=== PATIENT | female | born 1945 | race Caucasian/White ===

== ENCOUNTER 2017-09-26 19:35 | Inpatient (IN) ==
[2017-09-26] MEDS ORDERED: Ipratropium/Albuterol Neb 3 ML IH ONE (19:48)
[2017-09-26] MEDS ORDERED: methylPREDNISolone 125 MG/2 ML VIAL IVP ONE (19:48)
[2017-09-26 19:54] LABS: Bilirubin,Urine Negative (Negative); Blood,Urine Negative (Negative); Clarity,Urine Clear (Clear); Color,Urine Yellow (Yellow); Glucose,Urine (UA) Normal (Normal); Ketones,Urine 15 mg/dL (Negative); Leukocyte Esterase,Urine Negative (Negative); Nitrite,Urine Negative (Negative); Protein,Urine Negative (Neg-Trace); Specific Gravity,Urine > 1.030 (1.010-1.025); Urobilinogen,Urine Normal (Normal)
--- NOTE | 2017-09-26 20:10 | Emergency Department Note ---
Disposition Clinical Impression: Acute exacerbation of chronic obstructive airways disease, Hypoxia, Elevated brain natriuretic peptide (BNP) level Disposition: Admitted As Inpatient Condition: Fair Referrals: Jarett Romero MD [Primary Care Provider] - Time of Disposition: 22:26 SOB HPI - General Chief Complaint: ED Shortness of Breath/Dyspnea Stated Complaint: sob copd Time Seen by Provider: 09/26/17 19:42 Source: patient, EMS Limitations: no limitations Nursing Notes Reviewed: Yes Vital Signs Reviewed: Yes - History of Present Illness Patient presents to the ED the chief complaint of shortness of breath. Was transferred from urgent care. Patient states she has been short of breath the last few days, gradually worsening. Subjective fevers at home. Has had productive yellow to green cough. Some chest tightness but no chest pain. Denies any abdominal pain, vomiting or diarrhea. Got a dose of Rocephin in urgent care, but no imaging or labs. States she just feels very rundown and tired. - Related Data Home Medications Medication Instructions Recorded Confirmed Albuterol Neb [Proventil Neb] 2.5 mg IH Q4H PRN 03/30/16 09/26/17 Albuterol Sulfate [Proair Hfa] 2 puff IH Q4H PRN 03/30/16 09/26/17 Atenolol [Tenormin] 50 mg PO DAILY 03/30/16 09/26/17 Budesonide/Formoterol 160/4.5 1 puff IH BIDR 03/30/16 09/26/17 [Symbicort 160/4.5] Cyclosporine [Restasis] 1 drop BOTH EYES BID 03/30/16 09/26/17 Fluticasone Propionate Nasal 1 spray NS BID 03/30/16 09/26/17 [Flonase] Gabapentin [Neurontin] 600 mg PO HS 03/30/16 09/26/17 Levothyroxine [Synthroid] 88 mcg PO 0630 03/30/16 09/26/17 Montelukast [Singulair] 10 mg PO DAILY 03/30/16 09/26/17 Naproxen [Naprosyn] 500 mg PO BID PRN 03/30/16 09/26/17 Pantoprazole Sodium [Protonix] 40 mg PO BID 03/30/16 09/26/17 Tizanidine HCl 4 mg PO HS PRN 03/30/16 09/26/17 hydroCHLOROthiazide 25 mg PO DAILY 03/30/16 09/26/17 [Hydrochlorothiazide] ALPRAZolam [Xanax 0.5 MG Tablet] 0.5 mg PO BID 09/26/17 09/26/17 Ipratropium/Albuterol Sulfate 2 puff IH BID 09/26/17 09/26/17 [Combivent Respimat Inhal [place]] Meclizine HCl [Verticalm] 25 mg PO TID PRN 09/26/17 09/26/17 Allergies Allergy/AdvReac Type Severity Reaction Status Date / Time No Known Allergies Allergy Verified 03/30/16 11:38 Review of Systems: As reviewed in the HPI. All other systems reviewed are negative or normal. Past Medical History - Past Medical History Attestation: Yes The following information was validated with the patient. Source: patient, old records reviewed, obtained from family Medical history: Reports: arthritis, asthma, COPD, GERD, hypertension, osteoporosis, thyroid disease Surgical history: Reports: thyroidectomy Psychiatric history: Reports: anxiety - Social History Smoking Status: Current every day smoker Smokeless Tobacco Status: No Alcohol use: Reports: occasionally Drug use: Reports: none Physical Exam - General Limitations: no limitations General appearance: alert, in distress - Head Head exam: atraumatic, normocephalic, normal inspection - ENT ENT exam: mucous membranes moist - Respiratory Respiratory exam: Present: respiratory distress, wheezes, accessory muscle use, prolonged expiratory phase. Absent: normal lung sounds bilaterally, stridor - Cardiovascular Cardiovascular exam: Present: tachycardia, normal heart sounds - Abdominal Exam Abdominal exam: Present: soft, Non-Tender. Absent: tenderness, distention, guarding, rebound, rigidity - Extremities Exam Extremities exam: Present: normal inspection, full ROM. Absent: tenderness, pedal edema - Neurological Exam Neurological exam: Present: alert, oriented X3 - Psychiatric Psychiatric exam: Present: normal affect, normal mood - Skin Skin exam: Present: intact, normal color, diaphoresis Course Course Narrative: Patient presenting with shortness breath. Patient is very tachypnic And diaphoretic. EKG shows rate related ST depression. She is wheezing throughout moderate respiratory distress. We will give her 3 duo nebs and steroids and reevaluate. - Reevaluation(s) Reevaluation #1: Patient's wheezing has improved after the duo nebs. However, she still has poor inspiratory effort and looks like she is starting to tire out. Patient does have accessory muscle use abdominal muscle use and states that she is starting to feel tired. We will place on BiPAP at this time Reevaluation #2: After 10 minutes on BiPAP. Patient has improved greatly, much better aeration, states that she feels much better and appears more awake and alert. We will admit for COPD exacerbation. Her BNP is elevated. However, she had an echo 4 days ago with an EF of 60%. Do not feel that she is in acute ingestive heart failure due to lack of pulmonary edema or peripheral edema. Vital Signs Temperature 100.3 F H 09/26/17 19:50 Pulse Rate 117 09/26/17 19:50 Respiratory Rate 25 09/26/17 19:50 Blood Pressure 150/101 09/26/17 19:50 O2 Sat by Pulse Oximetry 97 09/26/17 19:50 Temperature 100.3 F H 09/26/17 19:50 Pulse Rate 106 09/26/17 21:59 Respiratory Rate 20 09/26/17 22:23 Blood Pressure 114/68 09/26/17 22:23 O2 Sat by Pulse Oximetry 96 09/26/17 21:59 Oxygen Delivery Oxygen Delivery Bipap Shortness of Breath/Dyspnea - Differential Diagnosis Likely: acute exacerbation of chronic obstructive airways disease, congestive heart failure, pneumonia - Medical Records Medical records reviewed: Yes I reviewed the patient's medical records. - Lab Data Lab results reviewed: Yes I reviewed the patient's lab results. Result diagrams: 09/26/17 20:25 09/26/17 20:25 Lab Results 09/26/17 09/26/17 09/26/17 Range/Units 19:45 20:25 20:25 WBC 7.9 (4.3-11.1) K/mcL RBC 3.95 (3.82-4.97) M/mcL Hgb 12.9 (11.5-15.4) g/dL Hct 38.6 (35.3-44.9) % MCV 97.7 (83.0-100.0) fL MCH 32.7 (28.0-33.3) pg MCHC 33.4 (31.6-35.5) g/dL RDW 13.0 (11.5-14.5) % Plt Count 155 (140-400) K/mcL MPV 11.1 (9.4-12.4) fL Immature Gran % 0.4 (0-4) % Seg Neutrophils % 81.2 % Lymphocytes % 10.8 % Monocytes % 7.2 % Eosinophils % 0.0 % Basophils % 0.4 % Neutrophils # 6.5 (1.6-8.9) K/mcL Lymphocytes # 0.9 (0.6-4.6) K/mcL Monocytes # 0.6 (0.0-1.3) K/mcL Eosinophils # 0.0 (0.0-0.6) K/mcL Basophils # 0.0 (0.0-0.2) K/mcL VBG pH (7.32-7.42) pH Units VBG pCO2 (41-51) mmHg VBG pO2 (25-50) mmHg VBG HCO3 (21-27) mEq/L Sodium 136 (136-145) mEq/L Potassium 3.3 L (3.5-5.1) mEq/L Chloride 99 (98-107) mEq/L Carbon Dioxide 25 (23-29) mEq/L BUN 14 (8-23) mg/dL Creatinine 0.66 (0.60-1.20) mg/dL Est GFR ( Amer) > 60 (> 60) Est GFR (Non-Af Amer) > 60 (> 60) BUN/Creatinine Ratio 21 (6-26) Glucose 148 H (70-105) mg/dL Calculated Osmolality 285 (280-300) Lactic Acid (0.5-2.2) mmol/L Calcium 8.9 (8.6-10.3) mg/dL Troponin I 0.03 (< 0.04) ng/mL B-Natriuretic Peptide (Less than 100) pg/mL Urine Color Yellow (Yellow) Urine Clarity Clear (Clear) Urine pH 6.0 (5.0-8.0) pH Units Ur Specific [place] > 1.030 H (1.010-1.025) Urine Protein Negative (Neg-Trace) mg/dL Urine Glucose (UA) Normal (Normal) mg/dL Urine Ketones 15 H (Negative) mg/dL Urine Blood Negative (Negative) Urine Nitrite Negative (Negative) Urine Bilirubin Negative (Negative) Urine Urobilinogen Normal (Normal) mg/dL Ur Leukocyte Esterase Negative (Negative) Ur Culture Indicated? NO (NO) 09/26/17 09/26/17 09/26/17 Range/Units 20:25 20:25 20:58 WBC (4.3-11.1) K/mcL RBC (3.82-4.97) M/mcL Hgb (11.5-15.4) g/dL Hct (35.3-44.9) % MCV (83.0-100.0) fL MCH (28.0-33.3) pg MCHC (31.6-35.5) g/dL RDW (11.5-14.5) % Plt Count (140-400) K/mcL MPV (9.4-12.4) fL Immature Gran % (0-4) % Seg Neutrophils % % Lymphocytes % % Monocytes % % Eosinophils % % Basophils % % Neutrophils # (1.6-8.9) K/mcL Lymphocytes # (0.6-4.6) K/mcL Monocytes # (0.0-1.3) K/mcL Eosinophils # (0.0-0.6) K/mcL Basophils # (0.0-0.2) K/mcL VBG pH 7.38 (7.32-7.42) pH Units VBG pCO2 48 (41-51) mmHg VBG pO2 149 H (25-50) mmHg VBG HCO3 28 H (21-27) mEq/L Sodium (136-145) mEq/L Potassium (3.5-5.1) mEq/L Chloride (98-107) mEq/L Carbon Dioxide (23-29) mEq/L BUN (8-23) mg/dL Creatinine (0.60-1.20) mg/dL Est GFR ( Amer) (> 60) Est GFR (Non-Af Amer) (> 60) BUN/Creatinine Ratio (6-26) Glucose (70-105) mg/dL Calculated Osmolality (280-300) Lactic Acid 0.7 (0.5-2.2) mmol/L Calcium (8.6-10.3) mg/dL Troponin I (< 0.04) ng/mL B-Natriuretic Peptide 329 H (Less than 100) pg/mL Urine Color (Yellow) Urine Clarity (Clear) Urine pH (5.0-8.0) pH Units Ur Specific [place] (1.010-1.025) Urine Protein (Neg-Trace) mg/dL Urine Glucose (UA) (Normal) mg/dL Urine Ketones (Negative) mg/dL Urine Blood (Negative) Urine Nitrite (Negative) Urine Bilirubin (Negative) Urine Urobilinogen (Normal) mg/dL Ur Leukocyte Esterase (Negative) Ur Culture Indicated? (NO) - Radiology Data Radiology results reviewed: Yes I reviewed the patient's radiology results. - EKG Data EKG attestation: Yes I reviewed and interpreted this EKG. EKG results narrative: Sinus tachycardia, rate 110, QRS 91, QTc 490, right axis deviation, diffuse suspected rate related ST segment depression. Critical Care Time Critical Care Time: Yes Total Critical Care Time: 30 Attestation: I personally spent ___30___ minutes devoted to the care of this critically ill patient. This time excludes the time for billable procedures. Attestation Statement - Attestation Attestation: I examined this patient and my medical decision-making was reviewed with the Resident Physician. I agree with the documented findings, disposition and treatment plan as described except to the extent set forth below.
[2017-09-26 20:37] LABS: Basophils % 0.4 %; Hematocrit 38.6 % (35.3-44.9); Hemoglobin 12.9 g/dL (11.5-15.4); Immature Granulocytes % 0.4 % (0-4); Lymphocytes # 0.9 K/mcL (0.6-4.6); Lymphocytes % 10.8 %; Mean Corpuscular HGB Conc 33.4 g/dL (31.6-35.5); Mean Corpuscular Hemoglobin 32.7 pg (28.0-33.3); Mean Corpuscular Volume 97.7 fL (83.0-100.0); Mean Platelet Volume 11.1 fL (9.4-12.4); Monocytes # 0.6 K/mcL (0.0-1.3); Monocytes % 7.2 %; Neutrophils # 6.5 K/mcL (1.6-8.9); Platelet Count 155 K/mcL (140-400); Red Blood Count 3.95 M/mcL (3.82-4.97); Segmented Neutrophils % 81.2 %
[2017-09-26 20:52] LABS: Troponin I 0.03 ng/mL (< 0.04)
[2017-09-26 21:01] LABS: VBG HCO3 28 mEq/L (21-27); VBG PCO2 48 mmHg (41-51); VBG PH 7.38 pH Units (7.32-7.42); VBG PO2 149 mmHg (25-50)
[2017-09-26 21:17] LABS: BUN/Creatinine Ratio 21 (6-26); Blood Urea Nitrogen 14 mg/dL (8-23); Calcium 8.9 mg/dL (8.6-10.3); Carbon Dioxide 25 mEq/L (23-29); Chloride 99 mEq/L (98-107); Glucose 148 mg/dL (70-105); Osmolality,Calculated 285 (280-300); Potassium 3.3 mEq/L (3.5-5.1); Sodium 136 mEq/L (136-145); eGFR For African Americans > 60 (> 60); eGFR For Non-African Americans > 60 (> 60)
--- NOTE | 2017-09-26 23:01 | Emergency Department Note ---
Disposition Clinical Impression: Acute exacerbation of chronic obstructive airways disease, Hypoxia, Elevated brain natriuretic peptide (BNP) level Disposition: Admitted As Inpatient Condition: Fair Referrals: Jarett Romero MD [Primary Care Provider] - General Adult HPI - General Chief complaint: ED Shortness of Breath/Dyspnea Stated complaint: sob copd Time Seen by Provider: 09/26/17 19:42 Source: patient, EMS Limitations: no limitations - History of Present Illness Pain Scale: 0 - Related Data Home Medications Medication Instructions Recorded Confirmed Albuterol Neb [Proventil Neb] 2.5 mg IH Q4H PRN 03/30/16 09/26/17 Albuterol Sulfate [Proair Hfa] 2 puff IH Q4H PRN 03/30/16 09/26/17 Atenolol [Tenormin] 50 mg PO DAILY 03/30/16 09/26/17 Budesonide/Formoterol 160/4.5 1 puff IH BIDR 03/30/16 09/26/17 [Symbicort 160/4.5] Cyclosporine [Restasis] 1 drop BOTH EYES BID 03/30/16 09/26/17 Fluticasone Propionate Nasal 1 spray NS BID 03/30/16 09/26/17 [Flonase] Gabapentin [Neurontin] 600 mg PO HS 03/30/16 09/26/17 Levothyroxine [Synthroid] 88 mcg PO 0630 03/30/16 09/26/17 Montelukast [Singulair] 10 mg PO DAILY 03/30/16 09/26/17 Naproxen [Naprosyn] 500 mg PO BID PRN 03/30/16 09/26/17 Pantoprazole Sodium [Protonix] 40 mg PO BID 03/30/16 09/26/17 Tizanidine HCl 4 mg PO HS PRN 03/30/16 09/26/17 hydroCHLOROthiazide 25 mg PO DAILY 03/30/16 09/26/17 [Hydrochlorothiazide] ALPRAZolam [Xanax 0.5 MG Tablet] 0.5 mg PO BID 09/26/17 09/26/17 Ipratropium/Albuterol Sulfate 2 puff IH BID 09/26/17 09/26/17 [Combivent Respimat Inhal [place]] Meclizine HCl [Verticalm] 25 mg PO TID PRN 09/26/17 09/26/17 Allergies Allergy/AdvReac Type Severity Reaction Status Date / Time No Known Allergies Allergy Verified 03/30/16 11:38 Past Medical History - Past Medical History Medical history: Reports: arthritis, asthma, COPD, GERD, hypertension, osteoporosis, thyroid disease Surgical history: Reports: thyroidectomy Psychiatric history: Reports: anxiety - Social History Smoking Status: Current every day smoker Smokeless Tobacco Status: No Alcohol use: Reports: occasionally Drug use: Reports: none Physical Exam - General Limitations: no limitations General appearance: alert, in distress Course Vital Signs Temperature 100.3 F H 09/26/17 19:50 Pulse Rate 117 09/26/17 19:50 Respiratory Rate 25 09/26/17 19:50 Blood Pressure 150/101 09/26/17 19:50 O2 Sat by Pulse Oximetry 97 09/26/17 19:50 Temperature 100.3 F H 09/26/17 19:50 Pulse Rate 106 09/26/17 21:59 Respiratory Rate 20 09/26/17 22:23 Blood Pressure 114/68 09/26/17 22:23 O2 Sat by Pulse Oximetry 96 09/26/17 21:59 Oxygen Delivery Oxygen Delivery Bipap Medical Decision Making - Lab Data Result diagrams: 09/26/17 20:25 09/26/17 20:25 Lab Results 09/26/17 09/26/17 09/26/17 Range/Units 19:45 20:25 20:25 WBC 7.9 (4.3-11.1) K/mcL RBC 3.95 (3.82-4.97) M/mcL Hgb 12.9 (11.5-15.4) g/dL Hct 38.6 (35.3-44.9) % MCV 97.7 (83.0-100.0) fL MCH 32.7 (28.0-33.3) pg MCHC 33.4 (31.6-35.5) g/dL RDW 13.0 (11.5-14.5) % Plt Count 155 (140-400) K/mcL MPV 11.1 (9.4-12.4) fL Immature Gran % 0.4 (0-4) % Seg Neutrophils % 81.2 % Lymphocytes % 10.8 % Monocytes % 7.2 % Eosinophils % 0.0 % Basophils % 0.4 % Neutrophils # 6.5 (1.6-8.9) K/mcL Lymphocytes # 0.9 (0.6-4.6) K/mcL Monocytes # 0.6 (0.0-1.3) K/mcL Eosinophils # 0.0 (0.0-0.6) K/mcL Basophils # 0.0 (0.0-0.2) K/mcL VBG pH (7.32-7.42) pH Units VBG pCO2 (41-51) mmHg VBG pO2 (25-50) mmHg VBG HCO3 (21-27) mEq/L Sodium 136 (136-145) mEq/L Potassium 3.3 L (3.5-5.1) mEq/L Chloride 99 (98-107) mEq/L Carbon Dioxide 25 (23-29) mEq/L BUN 14 (8-23) mg/dL Creatinine 0.66 (0.60-1.20) mg/dL Est GFR ( Amer) > 60 (> 60) Est GFR (Non-Af Amer) > 60 (> 60) BUN/Creatinine Ratio 21 (6-26) Glucose 148 H (70-105) mg/dL Calculated Osmolality 285 (280-300) Lactic Acid (0.5-2.2) mmol/L Calcium 8.9 (8.6-10.3) mg/dL Troponin I 0.03 (< 0.04) ng/mL B-Natriuretic Peptide (Less than 100) pg/mL Urine Color Yellow (Yellow) Urine Clarity Clear (Clear) Urine pH 6.0 (5.0-8.0) pH Units Ur Specific [place] > 1.030 H (1.010-1.025) Urine Protein Negative (Neg-Trace) mg/dL Urine Glucose (UA) Normal (Normal) mg/dL Urine Ketones 15 H (Negative) mg/dL Urine Blood Negative (Negative) Urine Nitrite Negative (Negative) Urine Bilirubin Negative (Negative) Urine Urobilinogen Normal (Normal) mg/dL Ur Leukocyte Esterase Negative (Negative) Ur Culture Indicated? NO (NO) 09/26/17 09/26/17 09/26/17 Range/Units 20:25 20:25 20:58 WBC (4.3-11.1) K/mcL RBC (3.82-4.97) M/mcL Hgb (11.5-15.4) g/dL Hct (35.3-44.9) % MCV (83.0-100.0) fL MCH (28.0-33.3) pg MCHC (31.6-35.5) g/dL RDW (11.5-14.5) % Plt Count (140-400) K/mcL MPV (9.4-12.4) fL Immature Gran % (0-4) % Seg Neutrophils % % Lymphocytes % % Monocytes % % Eosinophils % % Basophils % % Neutrophils # (1.6-8.9) K/mcL Lymphocytes # (0.6-4.6) K/mcL Monocytes # (0.0-1.3) K/mcL Eosinophils # (0.0-0.6) K/mcL Basophils # (0.0-0.2) K/mcL VBG pH 7.38 (7.32-7.42) pH Units VBG pCO2 48 (41-51) mmHg VBG pO2 149 H (25-50) mmHg VBG HCO3 28 H (21-27) mEq/L Sodium (136-145) mEq/L Potassium (3.5-5.1) mEq/L Chloride (98-107) mEq/L Carbon Dioxide (23-29) mEq/L BUN (8-23) mg/dL Creatinine (0.60-1.20) mg/dL Est GFR ( Amer) (> 60) Est GFR (Non-Af Amer) (> 60) BUN/Creatinine Ratio (6-26) Glucose (70-105) mg/dL Calculated Osmolality (280-300) Lactic Acid 0.7 (0.5-2.2) mmol/L Calcium (8.6-10.3) mg/dL Troponin I (< 0.04) ng/mL B-Natriuretic Peptide 329 H (Less than 100) pg/mL Urine Color (Yellow) Urine Clarity (Clear) Urine pH (5.0-8.0) pH Units Ur Specific [place] (1.010-1.025) Urine Protein (Neg-Trace) mg/dL Urine Glucose (UA) (Normal) mg/dL Urine Ketones (Negative) mg/dL Urine Blood (Negative) Urine Nitrite (Negative) Urine Bilirubin (Negative) Urine Urobilinogen (Normal) mg/dL Ur Leukocyte Esterase (Negative) Ur Culture Indicated? (NO) Attestation Statement - Attestation Attestation: I examined this patient and my medical decision-making was reviewed with the Resident Physician. I agree with the documented findings, disposition and treatment plan as described except to the extent set forth below. 72-year-old female was a CT reveals differently. She says symptoms evolving for the past 2 days associated with productive cough and low-grade fever. She went to urgent care at which time they gave her injections of Solu-Medrol and Rocephin and sent her here for further treatment. She presents with moderate respiratory distress. She is on home oxygen. She also continues smoking. Elderly female who is in moderate physiologic, respiratory distress upon arrival. She is tachypneic and tachycardic. He is membranes are dry. Neck supple. Trachea midline. Chest with diminished breath sounds throughout and biphasic wheezes in all lung resendez. No focal rhonchi appreciated. Abdomen soft, nondistended and nontender. Extremities warm and dry without asymmetric edema. She was given sequential DuoNeb treatments with some improvement but was still tachypneic with moderate use of accessory muscles. VBG was unremarkable. She is placed on BiPAP with significant symptomatic relief. She continued on BiPAP and will be admitted to the hospital for further therapy and monitoring. The high probability of a clinically significant, sudden or life threatening deterioration of the [cardiopulmonary] system(s) required my full and direct attention, intervention and personal management. The aggregate critical care time was [32] minutes. This time is in addition to time spent performing reported procedures but includes the following: [x] Data Review and interpretation [x] Patient assessment and monitoring of vital signs [x] Documentation [x] Medication orders and management
--- NOTE | 2017-09-26 23:09 | Internal Med History&Physical ---
<Vicente Puckett - Last Filed: 09/26/17 23:47> Date of Encounter: 09/26/17 Time of Encounter: 23:08 Internal Medicine - H&P: HPI Chief complaint: SOB Admitted From: Emergency Dept Plans for Post Hospital Care: Home History of present illness: Ms. Funez is a 72 year old female with past medical history of COPD presents to emergency department from urgent care with a complaint of shortness of breath. She states that she has been experiencing shortness breath past 3 days and has been getting progressively worse. She does wear home oxygen at 2.5 L. She also uses home inhalers of Symbicort, albuterol nebulizers and has been using her albuterol more frequently. She does have a productive cough with foamy white sputum however this is consistent with her baseline. She also reports subjective fevers during this time. She denies any complaints of chest pain, numbness, tingling outside of her baseline radiculopathy. She does state she experiences nausea and 1 episode of vomiting which contained gastric contents. This has resolved. Denies any relieving factors and states that it is exacerbated with exertion but denies any orthopnea or PND. Denies any swelling. She does have a recent echocardiogram this past week which showed an ejection fraction of 60% and mild diastolic dysfunction. In the emergency department, patient did receive duo nebs and albuterol. Dictation she was saturating oxygen 97% on 2 L. EKG showed sinus tachycardia with a rate in the 130s. Chest x-ray showed no acute process. Labs were at baseline levels including no WBC elevation but did have an elevated BNP of 329 and hypokalemia at 3.3. Past Med Surg Social Fam HX - Past Medical History Medical history: arthritis, asthma, COPD, GERD, hypertension, osteoporosis, thyroid disease Psychiatric history: anxiety - Past Surgical History Surgical History: thyroidectomy - Social History Smoking Status: Current every day smoker Smokeless Tobacco Status: No Alcohol use: occasionally Drug use: none Internal Medicine - H&P: Meds Albuterol Neb [Proventil Neb] 2.5 mg IH Q4H PRN 03/30/16 [History] Albuterol Sulfate [Proair Hfa] 2 puff IH Q4H PRN 03/30/16 [History] Atenolol [Tenormin] 50 mg PO DAILY 03/30/16 [History] Budesonide/Formoterol 160/4.5 [Symbicort 160/4.5] 1 puff IH BIDR 03/30/16 [ History] Cyclosporine [Restasis] 1 drop BOTH EYES BID 03/30/16 [History] Fluticasone Propionate Nasal [Flonase] 1 spray NS BID 03/30/16 [History] Gabapentin [Neurontin] 600 mg PO HS 03/30/16 [History] Levothyroxine [Synthroid] 88 mcg PO 0630 03/30/16 [History] Montelukast [Singulair] 10 mg PO DAILY 03/30/16 [History] Naproxen [Naprosyn] 500 mg PO BID PRN 03/30/16 [History] Pantoprazole Sodium [Protonix] 40 mg PO BID 03/30/16 [History] Tizanidine HCl 4 mg PO HS PRN 03/30/16 [History] hydroCHLOROthiazide [Hydrochlorothiazide] 25 mg PO DAILY 03/30/16 [History] ALPRAZolam [Xanax 0.5 MG Tablet] 0.5 mg PO BID 09/26/17 [History] Ipratropium/Albuterol Sulfate [Combivent Respimat Inhal Bodfish] 2 puff IH BID [History] Meclizine HCl [Verticalm] 25 mg PO TID PRN 09/26/17 [History] 3 Allergy/AdvReac Type Severity Reaction Status Date / Time No Known Allergies Allergy Verified 03/30/16 11:38 All Systems PM: A 10-system review of systems was performed and is negative for pertinent findings except as documented above in the HPI. Review of systems: - Constitutional: Admits to subjective fevers Denies weight loss, generalized fatigue - EENT: Denies vision changes/blurriness, tinnitus, auditory changes, rhinorrhea , congestion, sore throat, odynaphagia - CVS: Denies chest pain, palpitations, orthopnea, edema, PND, - Pulm: Admits to shortness breath, cough, sputum Denies hematemesis, wheezing - GI: Admits to nausea, vomiting Denies abdominal pain, anorexia, diarrhea, constipation, melena - : Denies dysuria, increased frequency, urgency, hematuria, - Skin: Denies rashes, ulcers, color changes, - Neuro: Denies MARSHALL, paresthesias, focal deficits, ataxia, - Constitutional Vitals: Temp Pulse Resp BP Pulse Ox 100.3 F H 106 20 114/68 96 09/26/17 19:50 09/26/17 21:59 09/26/17 22:23 09/26/17 22:23 09/26/17 21:59 Exam: Gen.: Vitals noted. No acute distress. AAOx3. Resting comfortably in bed on 4 L of oxygen. Cachectic, thin-appearing female HEENT: PERRL/EOMI, oropharynx clear, Normocephalic, atraumatic, MMM Cardiac: Tachycardic, no murmur, +S1/S2 Pulmonary: Diffuse wheezing present bilaterally. equal chest expansion. Prominent SCMs. Abdomen: soft, nontender, BS noted, no guarding, no rebound. Extremities: no BLE edema, nontender calf, no cyanosis or clubbing Neuro: A&Ox3, moves all extremities, no focal deficits Psych: Appropriate mood and behavior Internal Med - H&P Results - Labs CBC & Chem 7: 09/26/17 20:25 09/26/17 20:25 - Assessment and plan (1) Acute and chronic respiratory failure Current Visit: Yes Status: Acute Assessment and plan: - Likely secondary to COPD exacerbation as below - Home oxygen requirement of 2.5L, currently tolerating 4 L of oxygen in mid 90s - Home medications of Symbicort, albuterol nebulizers. No reported hospitalizations for shortness of breath - Chest x-ray shows no acute process, VBG shows no hypercarbia - Vital signs stable on presentation including normal leukocyte count, patient reports subjective fevers - Productive cough at baseline Plan - Solu-medrol 40 q8 hours, duonebs, levalbuterol for tachycardia - Levaquin - Supplemental O2 as needed Qualifiers: Respiratory failure complication: hypoxia Qualified Code(s): J96.21 - Acute and chronic respiratory failure with hypoxia (2) Tachycardia Current Visit: Yes Status: Acute Assessment and plan: - Possibly secondary to to albuterol use versus hypoxia - EKG shows sinus rhythm - Patient is asymptomatic Plan - Switch albuterol to levalbuterol - Monitor at this time, patient does not appear septic however does meet SIRS criteria for tachycardia and tachypnea (3) Acute exacerbation of chronic obstructive airways disease Current Visit: Yes Status: Acute Assessment and plan: - As above for acute on chronic respiratory failure with hypoxia (4) Elevated glucose Current Visit: Yes Status: Acute Assessment and plan: - Blood glucose of 148 on admission, no reports of diabetes - No recent A1c in computer system - We will obtain A1c with morning labs - Expect a rise in blood glucose given steroids as above (5) Elevated brain natriuretic peptide (BNP) level Current Visit: Yes Status: Acute Assessment and plan: - BNP of 329 - Echocardiogram in 09/22/17 shows ejection fraction of 60% with mild diastolic dysfunction - Patient denies any symptoms of orthopnea or PND, no reports of swelling - Shortness breath is likely secondary to COPD exacerbation - We will monitor at this time and treat COPD as above (6) Tobacco abuse Current Visit: Yes Status: Acute Assessment and plan: - Patient reports smoking 1 pack per day - She was advised to quit however is not interested in cessation at this time (7) DVT prophylaxis Current Visit: Yes Status: Acute Assessment and plan: Subcutaneous heparin (8) Hypokalemia Current Visit: Yes Status: Acute Assessment and plan: - Potassium of 3.3 on admission - We will replenish with 40 mEq now , expect a decrease Given albuterol use emergency room - Monitor with daily labs - Time Spent With Patient Total time spent is greater than 50% in coordination of care (as documented) at patient's floor/unit and/or counseling patient: 25 - 35 minutes <Yasir Dupont - Last Filed: 09/27/17 01:01> Date of Encounter: 09/27/17 Time of Encounter: 23:40 Internal Medicine - H&P: HPI History of present illness: Ms. Funez is a 72 year old female Past Med Surg Social Fam HX - Additional Family History Additional family history: Family history reviewed and found to be noncontributory at this time. All Systems PM: A 10-system review of systems was performed and is negative for pertinent findings except as documented above in the HPI. - Constitutional Vitals: Temp Pulse Resp BP Pulse Ox 9738 F H 132 18 123/88 93 09/26/17 23:33 09/26/17 23:33 09/26/17 23:33 09/26/17 23:33 09/26/17 23:33 Internal Med - H&P Results - Labs CBC & Chem 7: 09/26/17 20:25 09/26/17 20:25 - Attending Attestation I examined this patient and my medical decision-making was reviewed with the Resident Physician, Vicente Puckett. I agree with the documented findings, disposition and treatment plan as described with any changes as documented below. 72-year-old female patient with history of COPD presented to the ER with acute shortness of breath, subjective fevers along with cough and sputum production. On examination here, she has end expiratory wheezes. At home, she is on 2-1/2 L O2 supplementation. No chest pain. No hemoptysis. Chest x-ray does not show any clear consolidation although there does appear to be some increased markings in right base. She was given bronchodilators and placed on BiPAP in ER. Acute on chronic respiratory failure with hypoxia: Admit inpatient. Treat with O2 supplementation and BiPAP as needed. Treat underlying COPD exacerbation. Acute COPD exacerbation: Patient with history of COPD now with COPD exacerbation. Will treat with bronchodilators, intravenous steroids and O2 supplementation. Also place patient on Levaquin. Will repeat chest x-ray in morning to reevaluate for possible developing pneumonia. Chronic tobacco abuse: Counseled about cessation. Offered nicotine patch. Patient does not want this at this time. - Assessment and plan (1) Acute and chronic respiratory failure Current Visit: Yes Status: Acute Qualifiers: Respiratory failure complication: hypoxia Qualified Code(s): J96.21 - Acute and chronic respiratory failure with hypoxia (2) Acute exacerbation of chronic obstructive airways disease Current Visit: Yes Status: Acute (3) Elevated brain natriuretic peptide (BNP) level Current Visit: Yes Status: Acute (4) Tachycardia Current Visit: Yes Status: Acute (5) DVT prophylaxis Current Visit: Yes Status: Acute (6) Elevated glucose Current Visit: Yes Status: Acute (7) Tobacco abuse Current Visit: Yes Status: Acute (8) Hypokalemia Current Visit: Yes Status: Acute - Time Spent With Patient Total time spent is greater than 50% in coordination of care (as documented) at patient's floor/unit and/or counseling patient:
[2017-09-26] MEDS ORDERED: Levalbuterol 1 PUFF INHALER IH PRN (23:10)
[2017-09-26] MEDS: MethylPREDNISolone 40 MG/ML VIAL IVP SCH (23:47)
--- NOTE | 2017-09-26 23:59 | Event Note ---
Date of Encounter: 09/26/17 Time of Encounter: 23:52 I examined this patient and my medical decision-making was reviewed with the Resident Physician, Vicente Puckett. I agree with the documented findings, disposition and treatment plan as described with any changes as documented below. 72-year-old female patient with history of COPD presented to the ER with acute shortness of breath, subjective fevers along with cough and sputum production. On examination here, she has end expiratory wheezes. At home, she is on 2-1/2 L O2 supplementation. No chest pain. No hemoptysis. Chest x-ray does not show any clear consolidation although there does appear to be some increased markings in right base. She was given bronchodilators and placed on BiPAP in ER. Acute on chronic respiratory failure with hypoxia: Admit inpatient. Treat with O2 supplementation and BiPAP as needed. Treat underlying COPD exacerbation. Acute COPD exacerbation: Patient with history of COPD now with COPD exacerbation. Will treat with bronchodilators, intravenous steroids and O2 supplementation. Also place patient on Levaquin. Will repeat chest x-ray in morning to reevaluate for possible developing pneumonia. Chronic tobacco abuse: Counseled about cessation. Offered nicotine patch. Patient does not want this at this time.
[2017-09-27] MEDS: Ipratropium/Albuterol Neb 3 ML IH SCH ×4 (04:16→21:55)
[2017-09-27 05:21] LABS: Basophils % 0.2 %; Hemoglobin 13.7 g/dL (11.5-15.4); Immature Granulocytes % 0.3 % (0-4); Lymphocytes # 0.4 K/mcL (0.6-4.6); Lymphocytes % 5.9 %; Mean Corpuscular HGB Conc 34.3 g/dL (31.6-35.5); Mean Corpuscular Volume 99.3 fL (83.0-100.0); Mean Platelet Volume 11.1 fL (9.4-12.4); Monocytes # 0.1 K/mcL (0.0-1.3); Monocytes % 1.2 %; Neutrophils # 5.5 K/mcL (1.6-8.9); Platelet Count 160 K/mcL (140-400); Red Blood Count 4.03 M/mcL (3.82-4.97); Red Cell Distribution Width 13.1 % (11.5-14.5); Segmented Neutrophils % 92.4 %
[2017-09-27 05:43] LABS: BUN/Creatinine Ratio 25 (6-26); Blood Urea Nitrogen 18 mg/dL (8-23); Calcium 8.8 mg/dL (8.6-10.3); Carbon Dioxide 27 mEq/L (23-29); Chloride 100 mEq/L (98-107); Glucose 185 mg/dL (70-105); Osmolality,Calculated 291 (280-300); Potassium 4.2 mEq/L (3.5-5.1); Sodium 137 mEq/L (136-145); eGFR For African Americans > 60 (> 60); eGFR For Non-African Americans > 60 (> 60)
[2017-09-27] MEDS: *HR* Heparin 5,000 UNIT/ML VIAL SQ SCH ×2 (05:58→17:09)
[2017-09-27 08:01] LABS: Estimated Average Glucose 114 mg/dl; Hemoglobin A1C 5.6 %
[2017-09-27] MEDS ORDERED: Levofloxacin 750 MG/150 ML 750 MG/150 ML BAG IVPB SCH (09:00)
[2017-09-27] MEDS: MethylPREDNISolone 40 MG/ML VIAL IVP SCH ×2 (09:03→17:09)
[2017-09-27] MEDS: Nicotine 7 MG PATCH.TD24 TD SCH (09:03)
[2017-09-27] MEDS: ALPRAZolam 0.5 MG TABLET PO SCH ×2 (09:06→21:37)
--- NOTE | 2017-09-27 10:34 | Internal Med Progress Note ---
<Martin Hill - Last Filed: 09/27/17 10:31> Date of Encounter: 09/27/17 Time of Encounter: 10:31 - Assessment and plan (1) Acute and chronic respiratory failure Current Visit: Yes Status: Acute Assessment and plan: Secondary to COPD exacerbation. Patient is on 2-1/2 L oxygen at night at home. Currently she is on 3 L. Continue IV steroids, DuoNeb's, Levaquin. Qualifiers: Respiratory failure complication: hypoxia Qualified Code(s): J96.21 - Acute and chronic respiratory failure with hypoxia; J96.22 - Acute and chronic respiratory failure with hypercapnia (2) Acute exacerbation of chronic obstructive airways disease Current Visit: Yes Status: Acute Assessment and plan: - As above for acute on chronic respiratory failure with hypoxia (3) Elevated brain natriuretic peptide (BNP) level Current Visit: Yes Status: Acute Assessment and plan: -Not an exacerbation. Continue hydrochlorothiazide Continue monitor. (4) Tachycardia Current Visit: Yes Status: Resolved Assessment and plan: Resolved. (5) DVT prophylaxis Current Visit: Yes Status: Acute Assessment and plan: Subcutaneous heparin (6) Elevated glucose Current Visit: Yes Status: Acute Assessment and plan: A1c 5.6. Follow-up with primary. (7) Tobacco abuse Current Visit: Yes Status: Acute Assessment and plan: - Patient reports smoking 1 pack per day Patient was educated on smoking cessation (8) Hypokalemia Current Visit: Yes Status: Resolved Assessment and plan: Resolved. - Time Spent With Patient Total time spent is greater than 50% in coordination of care (as documented) at patient's floor/unit and/or counseling patient: - Subjective Interval history: Patient resting in bed. Mildly distressed. She is using all her accessory muscles to breathe. She reports that her shortness of breath is not back to baseline. She continues to have cough is nonproductive. Patient reports she has not been hospitalized for COPD exacerbations ever. She tolerated BiPAP last night. - Constitutional Vitals: Temp Pulse Resp BP Pulse Ox 97.8 F 90 17 123/67 100 09/27/17 06:48 09/27/17 06:48 09/27/17 06:48 09/27/17 06:48 09/27/17 06:48 - Other Additional findings: General: Moderate distress Heart: Regular rate and rhythm with no murmur Lungs: Severely diminished breath sounds, tight Abdomen: Soft nontender, nondistended positive bowel sounds Skin: warm and dry, absent rash Extremities: Absent pedal edema, Neuro: Alert oriented 3 Vascular: Pedal and radial pulses 2 out of 4 Internal Medicine: Result - Labs CBC & Chem 7: 09/27/17 04:56 09/27/17 04:56 Labs: Short CBC 09/27/17 Range/Units 04:56 WBC 5.9 (4.3-11.1) K/mcL Hgb 13.7 (11.5-15.4) g/dL Hct 40.0 (35.3-44.9) % Plt Count 160 (140-400) K/mcL Neutrophils # 5.5 (1.6-8.9) K/mcL BMP 09/27/17 04:56 Sodium 137 Potassium 4.2 D Chloride 100 Carbon Dioxide 27 BUN 18 Creatinine 0.71 Glucose 185 H Calcium 8.8 Consult Discharge Plan - Plan Referrals: Jarett Romero MD [Primary Care Provider] - <Callum Arceo - Last Filed: 09/27/17 18:50> Date of Encounter: 09/27/17 - Assessment and plan (1) Acute and chronic respiratory failure Current Visit: Yes Status: Acute Qualifiers: Respiratory failure complication: hypoxia and hypercapnia Qualified Code(s) : J96.21 - Acute and chronic respiratory failure with hypoxia; J96.22 - Acute and chronic respiratory failure with hypercapnia (2) Acute exacerbation of chronic obstructive airways disease Current Visit: Yes Status: Acute (3) Elevated brain natriuretic peptide (BNP) level Current Visit: Yes Status: Acute (4) Tachycardia Current Visit: Yes Status: Resolved (5) DVT prophylaxis Current Visit: Yes Status: Acute (6) Elevated glucose Current Visit: Yes Status: Acute (7) Tobacco abuse Current Visit: Yes Status: Acute (8) Hypokalemia Current Visit: Yes Status: Resolved - Time Spent With Patient Total time spent is greater than 50% in coordination of care (as documented) at patient's floor/unit and/or counseling patient: - Constitutional Vitals: Temp Pulse Resp BP Pulse Ox 98.3 F 121 18 123/82 95 09/27/17 10:45 09/27/17 17:05 09/27/17 17:05 09/27/17 17:05 09/27/17 17:05 Internal Medicine: Result - Labs CBC & Chem 7: 09/27/17 04:56 09/27/17 04:56 Labs: Short CBC 09/27/17 Range/Units 04:56 WBC 5.9 (4.3-11.1) K/mcL Hgb 13.7 (11.5-15.4) g/dL Hct 40.0 (35.3-44.9) % Plt Count 160 (140-400) K/mcL Neutrophils # 5.5 (1.6-8.9) K/mcL BMP 09/27/17 04:56 Sodium 137 Potassium 4.2 D Chloride 100 Carbon Dioxide 27 BUN 18 Creatinine 0.71 Glucose 185 H Calcium 8.8 - Impressions Impressions Videofluoroscopic Swallow 09/27/17 08:29 IMPRESSION: Swallowing mechanism grossly within normal limits without evidence of aspiration. Please see separate speech pathology report for full discussion of findings and recommendations. D/ / Carlos A Walsh MD / Carlos A Walsh MD Interpreting Provider: Carlos A Walsh MD - Attending Attestation I examined this patient and my medical decision-making was reviewed with the Resident Physician on 09/27/17. I agree with the documented findings, disposition and treatment plan as described except to the extent set forth below. Ms Funez has been admitted for resp failure. She remains moderate to high risk due to potential for worsening clinical status. Ms Funez is breathing a little better. She is still on oxygen and intermittent bipap. No fever or chills. Exam alert Mod resp distress Mucus membranes dry Heart reg Diffuse end exp wheeze I/P 1. Resp failure 2. COPD Further diagnoses and plan as above.
[2017-09-27] MEDS: Budesonide/Formoterol 160/4.5 MDI IH SCH ×2 (10:35→22:18)
--- NOTE | 2017-09-27 14:43 | Electrocardiograph Report ---
[address] [place], [place] [address] Test Date: 2017-09-26 Pat Name: Sneha Funez Department: 104 Room: 2NE22 Gender: F Regulatory Technician: JENNIFER : 1945 Requested By: [id number] Order Number: [id number] Reading MD: Miri Chu Measurements Intervals [place] Rate: 110 P: RI: 0 QRS: 106 QRSD: 91 T: 91 QT: 425 QTc: 490 Interpretive Statements ATRIAL FLUTTER/TACHYCARDIA WITH RAPID VENTRICULAR RESPONSE RIGHT AXIS DEVIATION [QRS AXIS > 100] ST DEVIATION AND MODERATE T-WAVE ABNORMALITY, CONSIDER ANTEROLATERAL ISCHEMIA [- 0.1+ mV T WAVE IN V3-V6] Electronically Signed On 09-27-2017 14:41:36 EDT by Miri Chu
[2017-09-27] MEDS: Gabapentin 300 MG CAPSULE PO SCH (21:37)
[2017-09-28] MEDS: MethylPREDNISolone 40 MG/ML VIAL IVP SCH ×3 (01:40→17:04)
[2017-09-28] MEDS: Ipratropium/Albuterol Neb 3 ML IH SCH ×4 (04:08→20:32)
[2017-09-28] MEDS ORDERED: *HR* LORazepam 2 MG/ML VIAL IVP ONE (04:45)
[2017-09-28 08:10] LABS: ABG Base Excess 1 mEq/L (-2 to 3); ABG HCO3 31 mEq/L (21-27); ABG Oxygen Saturation 93 % (95-98); ABG PCO2 74 mmHg (35-45); ABG PH 7.24 pH Units (7.32-7.45); ABG PO2 81 mmHg (85-104); ABG TCO2 34 mEq/L (20-26); Blood Gas Modality PC/PS; Blood Gas PEEP 5 cm H2O; Blood Gas Pressure Support 10 cm H2O
[2017-09-28] MEDS: ALPRAZolam 0.5 MG TABLET PO SCH ×2 (08:21→21:14)
[2017-09-28] MEDS: Nicotine 7 MG PATCH.TD24 TD SCH (08:23)
[2017-09-28] MEDS: *HR* Heparin 5,000 UNIT/ML VIAL SQ SCH ×2 (08:23→17:04)
[2017-09-28] MEDS ORDERED: Levofloxacin 750 MG/150 ML 750 MG/150 ML BAG IVPB SCH (09:00)
[2017-09-28 09:04] LABS: Basophils % 0.1 %; Hematocrit 40.1 % (35.3-44.9); Hemoglobin 13.1 g/dL (11.5-15.4); Immature Granulocytes % 0.4 % (0-4); Lymphocytes # 0.7 K/mcL (0.6-4.6); Lymphocytes % 7.5 %; Mean Corpuscular HGB Conc 32.7 g/dL (31.6-35.5); Mean Corpuscular Hemoglobin 33.5 pg (28.0-33.3); Mean Corpuscular Volume 102.6 fL (83.0-100.0); Monocytes # 0.6 K/mcL (0.0-1.3); Monocytes % 5.7 %; Neutrophils # 8.4 K/mcL (1.6-8.9); Platelet Count 205 K/mcL (140-400); Red Blood Count 3.91 M/mcL (3.82-4.97); Red Cell Distribution Width 13.2 % (11.5-14.5); Segmented Neutrophils % 86.3 %
[2017-09-28 09:21] LABS: BUN/Creatinine Ratio 59 (6-26); Blood Urea Nitrogen 33 mg/dL (8-23); Carbon Dioxide 26 mEq/L (23-29); Chloride 104 mEq/L (98-107); Glucose 131 mg/dL (70-105); Osmolality,Calculated 299 (280-300); Potassium 4.7 mEq/L (3.5-5.1); Sodium 140 mEq/L (136-145); eGFR For African Americans > 60 (> 60); eGFR For Non-African Americans > 60 (> 60)
[2017-09-28] MEDS: Budesonide/Formoterol 160/4.5 MDI IH SCH ×2 (10:36→20:32)
[2017-09-28 11:17] LABS: Adenovirus Not Detected (Not Detect); Bordetella Pertussis Not Detected (Not Detect); Chlamydophila pneumoniae Not Detected (Not Detect); Coronavirus 229E Not Detected (Not Detect); Coronavirus HKU1 Not Detected (Not Detect); Coronavirus NL63 Not Detected (Not Detect); Coronavirus OC43 Not Detected (Not Detect); Human Metapneumovirus Not Detected (Not Detect); Human Rhinovirus/Enterovirus Not Detected (Not Detect); Influenza A Subtype 2009 H1 Not Detected (Not Detect); Influenza A Untypeable Not Detected (Not Detect); Influenza B Not Detected (Not Detect); Mycoplasma pneumoniae Not Detected (Not Detect); Parainfluenza Virus 1 Not Detected (Not Detect); Parainfluenza Virus 2 Not Detected (Not Detect); Parainfluenza Virus 3 ***DETECTED*** (Not Detect); Parainfluenza Virus 4 Not Detected (Not Detect); Respiratory Syncytial Virus Not Detected (Not Detect)
--- NOTE | 2017-09-28 11:47 | Internal Med Progress Note ---
<Martin Hill - Last Filed: 09/28/17 11:43> Date of Encounter: 09/28/17 Time of Encounter: 11:44 - Assessment and plan (1) Acute and chronic respiratory failure Current Visit: Yes Status: Acute Assessment and plan: Secondary to COPD exacerbation. Respiratory panel positive for parainfluenza 2 Currently BiPAP dependent Increased dosage of steroids. Continue duo nebs and Levaquin Qualifiers: Respiratory failure complication: hypoxia and hypercapnia Qualified Code(s) : J96.21 - Acute and chronic respiratory failure with hypoxia; J96.22 - Acute and chronic respiratory failure with hypercapnia (2) Acute exacerbation of chronic obstructive airways disease Current Visit: Yes Status: Acute Assessment and plan: - As above for acute on chronic respiratory failure with hypoxia (3) Elevated brain natriuretic peptide (BNP) level Current Visit: Yes Status: Acute Assessment and plan: -Not an exacerbation. Continue hydrochlorothiazide Continue monitor. (4) Tachycardia Current Visit: Yes Status: Acute Assessment and plan: 2nd to copd exacerbation in 140s this morning now resolved continue atenolol (5) DVT prophylaxis Current Visit: Yes Status: Acute Assessment and plan: Subcutaneous heparin (6) Tobacco abuse Current Visit: Yes Status: Acute Assessment and plan: - Patient reports smoking 1 pack per day Patient was educated on smoking cessation - Time Spent With Patient Total time spent is greater than 50% in coordination of care (as documented) at patient's floor/unit and/or counseling patient: - Subjective Interval history: Overnight sob worsened. Anxious on BiPAP. BiPAP dependent. Became tachycardic. Repeated chest x-ray this morning which was stable unchanged from previous. ABG showed respiratory acidosis with CO2 of 74. Given Ativan for her anxiety. - Constitutional Vitals: Temp Pulse Resp BP Pulse Ox 97.9 F 80 16 147/80 100 09/28/17 11:22 09/28/17 11:22 09/28/17 11:22 09/28/17 11:22 09/28/17 11:22 - Other Additional findings: General: Moderate distress Heart: Sinus tachycardia Lungs: Diffuse wheezing poor aeration Abdomen: Soft nontender, nondistended positive bowel sounds Skin: warm and dry, absent rash Extremities: Absent pedal edema, Neuro: Confused. Alert to self and place and time Vascular: Pedal and radial pulses 2 out of 4 Internal Medicine: Result - Labs CBC & Chem 7: 09/28/17 08:53 09/28/17 08:53 Labs: Short CBC 09/28/17 Range/Units 08:53 WBC 9.7 D (4.3-11.1) K/mcL Hgb 13.1 (11.5-15.4) g/dL Hct 40.1 (35.3-44.9) % Plt Count 205 (140-400) K/mcL Neutrophils # 8.4 (1.6-8.9) K/mcL BMP 09/28/17 08:53 Sodium 140 Potassium 4.7 Chloride 104 Carbon Dioxide 26 BUN 33 H Creatinine 0.56 L Glucose 131 H Calcium 9.0 - ABG Interpretation ABG results: ABG ABG pH 7.24 pH Units (7.32-7.45) L 09/28/17 08:07 ABG pCO2 74 mmHg (35-45) H* 09/28/17 08:07 ABG pO2 81 mmHg (85-104) L 09/28/17 08:07 ABG O2 Saturation 93 % (95-98) L 09/28/17 08:07 - Impressions Impressions Videofluoroscopic Swallow 09/27/17 08:29 IMPRESSION: Swallowing mechanism grossly within normal limits without evidence of aspiration. Please see separate speech pathology report for full discussion of findings and recommendations. D/ / Carlos A Walsh MD / Carlos A Walsh MD Interpreting Provider: Carlos A Walsh MD Chest X-Ray 09/28/17 08:16 IMPRESSION: No acute cardiopulmonary disease. Stable chest. D/ / Vicente Zhou MD / Vicente Zhou MD Interpreting Provider: Vicente Zhou MD Consult Discharge Plan - Plan Referrals: Jarett Romero MD [Primary Care Provider] - <Callum Arceo - Last Filed: 09/28/17 16:16> Date of Encounter: 09/28/17 - Assessment and plan (1) Acute exacerbation of chronic obstructive airways disease Current Visit: Yes Status: Acute (2) Elevated brain natriuretic peptide (BNP) level Current Visit: Yes Status: Acute (3) Tachycardia Current Visit: Yes Status: Acute (4) DVT prophylaxis Current Visit: Yes Status: Acute (5) Acute and chronic respiratory failure Current Visit: Yes Status: Acute Qualifiers: Respiratory failure complication: hypoxia and hypercapnia Qualified Code(s) : J96.21 - Acute and chronic respiratory failure with hypoxia; J96.22 - Acute and chronic respiratory failure with hypercapnia (6) Tobacco abuse Current Visit: Yes Status: Acute (7) Hypokalemia Current Visit: Yes Status: Resolved (8) Parainfluenza infection Current Visit: Yes Status: Acute - Time Spent With Patient Total time spent is greater than 50% in coordination of care (as documented) at patient's floor/unit and/or counseling patient: - Constitutional Vitals: Temp Pulse Resp BP Pulse Ox 97.5 F L 73 16 138/73 99 09/28/17 15:41 09/28/17 15:41 09/28/17 15:41 09/28/17 15:41 09/28/17 15:41 Internal Medicine: Result - Labs CBC & Chem 7: 09/28/17 08:53 09/28/17 08:53 Labs: Short CBC 09/28/17 Range/Units 08:53 WBC 9.7 D (4.3-11.1) K/mcL Hgb 13.1 (11.5-15.4) g/dL Hct 40.1 (35.3-44.9) % Plt Count 205 (140-400) K/mcL Neutrophils # 8.4 (1.6-8.9) K/mcL BMP 09/28/17 08:53 Sodium 140 Potassium 4.7 Chloride 104 Carbon Dioxide 26 BUN 33 H Creatinine 0.56 L Glucose 131 H Calcium 9.0 - ABG Interpretation ABG results: ABG ABG pH 7.24 pH Units (7.32-7.45) L 09/28/17 08:07 ABG pCO2 74 mmHg (35-45) H* 09/28/17 08:07 ABG pO2 81 mmHg (85-104) L 09/28/17 08:07 ABG O2 Saturation 93 % (95-98) L 05/31/18 08:07 - Impressions Impressions Chest X-Ray 09/28/17 08:16 IMPRESSION: No acute cardiopulmonary disease. Stable chest. D/ / Vicente Zhou MD / Vicente Zhou MD Interpreting Provider: Vicente Zhou MD - Attending Attestation I examined this patient and my medical decision-making was reviewed with the Resident Physician on 09/28/17. I agree with the documented findings, disposition and treatment plan as described except to the extent set forth below. Ms Funez is currently admitted for COPD and respiratory failure. She remains moderate to high risk due to potential for worsening clinical status. Ms Funez became more dyspneic last night. She has been on bipap and CO2 is elevated. No fever or chills. RIP positive for parainfluenza. Exam Alert Moderate resp distress Mucus membranes dry Heart reg Diffuse wheeze I/P 1. Resp failure 2. COPD 3. Parainfluenza Further diagnoses and plan as above.
[2017-09-28] MEDS: Gabapentin 300 MG CAPSULE PO SCH (21:14)
[2017-09-28] MEDS: Fluticasone Propionate Nasal 50 MCG/SPRAY BOTTLE NS SCH (21:14)
[2017-09-28] MEDS: (Cyclosporine [Restasis] 1 DROP) OP SCH (21:14)
[2017-09-29] MEDS: MethylPREDNISolone 40 MG/ML VIAL IVP SCH ×3 (00:34→16:24)
[2017-09-29] MEDS: Ipratropium/Albuterol Neb 3 ML IH SCH ×4 (00:46→11:23)
[2017-09-29 04:36] LABS: ABG Base Excess 4 mEq/L (-2 to 3); ABG HCO3 32 mEq/L (21-27); ABG Oxygen Saturation 96 % (95-98); ABG PCO2 64 mmHg (35-45); ABG PO2 96 mmHg (85-104); ABG TCO2 34 mEq/L (20-26)
[2017-09-29 04:45] LABS: Basophils % 0.2 %; Hematocrit 39.7 % (35.3-44.9); Hemoglobin 12.5 g/dL (11.5-15.4); Immature Granulocytes % 0.3 % (0-4); Lymphocytes % 17.1 %; Mean Corpuscular HGB Conc 31.5 g/dL (31.6-35.5); Mean Corpuscular Hemoglobin 32.1 pg (28.0-33.3); Mean Corpuscular Volume 101.8 fL (83.0-100.0); Mean Platelet Volume 11.2 fL (9.4-12.4); Monocytes # 0.4 K/mcL (0.0-1.3); Monocytes % 6.4 %; Neutrophils # 4.5 K/mcL (1.6-8.9); Platelet Count 208 K/mcL (140-400)
[2017-09-29 05:06] LABS: BUN/Creatinine Ratio 63 (6-26); Blood Urea Nitrogen 44 mg/dL (8-23); Calcium 8.5 mg/dL (8.6-10.3); Carbon Dioxide 27 mEq/L (23-29); Chloride 104 mEq/L (98-107); Glucose 119 mg/dL (70-105); Osmolality,Calculated 304 (280-300); Potassium 4.8 mEq/L (3.5-5.1); Sodium 141 mEq/L (136-145); eGFR For African Americans > 60 (> 60); eGFR For Non-African Americans > 60 (> 60)
[2017-09-29] MEDS: *HR* Heparin 5,000 UNIT/ML VIAL SQ SCH ×2 (05:51→16:24)
[2017-09-29] MEDS: Budesonide/Formoterol 160/4.5 MDI IH SCH ×2 (07:31→21:34)
[2017-09-29] MEDS ORDERED: Isovue-370 500 ML INFUS..BTL IV ONE (09:15)
[2017-09-29] MEDS: hydroCHLOROthiazide 25 MG TABLET PO SCH (09:23)
[2017-09-29] MEDS: ALPRAZolam 0.5 MG TABLET PO SCH ×2 (09:23→20:24)
[2017-09-29] MEDS: Fluticasone Propionate Nasal 50 MCG/SPRAY BOTTLE NS SCH ×2 (09:28→20:25)
[2017-09-29] MEDS: Nicotine 7 MG PATCH.TD24 TD SCH (09:29)
[2017-09-29] MEDS: (Cyclosporine [Restasis] 1 DROP) OP SCH ×2 (09:38→20:26)
--- NOTE | 2017-09-29 13:39 | Internal Med Progress Note ---
<Martin Hill - Last Filed: 09/29/17 13:34> Date of Encounter: 09/29/17 Time of Encounter: 13:34 - Assessment and plan (1) Acute and chronic respiratory failure Current Visit: Yes Status: Acute Assessment and plan: Secondary to COPD exacerbation. improving Respiratory panel positive for parainfluenza 2 Currently BiPAP dependent repeat ABG shows improved respiratory acidosis and hypercapnia under went CTA chest for concern of PE which was negative continue steroids, nebulizer and Levaquin Qualifiers: Respiratory failure complication: hypoxia and hypercapnia Qualified Code(s) : J96.21 - Acute and chronic respiratory failure with hypoxia; J96.22 - Acute and chronic respiratory failure with hypercapnia (2) Acute exacerbation of chronic obstructive airways disease Current Visit: Yes Status: Acute Assessment and plan: - As above for acute on chronic respiratory failure with hypoxia (3) Elevated brain natriuretic peptide (BNP) level Current Visit: Yes Status: Acute Assessment and plan: -Not an exacerbation. Continue hydrochlorothiazide Continue monitor. (4) Tachycardia Current Visit: Yes Status: Acute Assessment and plan: 2nd to copd exacerbation in 140s this morning again like yesterday seems like this happens after duonebs administration switch to xopenex now resolved after atenolol. (5) DVT prophylaxis Current Visit: Yes Status: Acute Assessment and plan: Subcutaneous heparin (6) Tobacco abuse Current Visit: Yes Status: Acute Assessment and plan: - Patient reports smoking 1 pack per day Patient was educated on smoking cessation (7) Parainfluenza infection Current Visit: Yes Status: Acute - Time Spent With Patient Total time spent is greater than 50% in coordination of care (as documented) at patient's floor/unit and/or counseling patient: - Subjective Interval history: Patients sob is improving. She is still bipap dependent. She was tachycardic this morning. She is resting not in distress. She denies chest pain, abdominal pain, LE pain. - Constitutional Vitals: Temp Pulse Resp BP Pulse Ox 98.4 F 76 18 122/61 99 09/29/17 10:47 09/29/17 10:47 09/29/17 11:23 09/29/17 10:47 09/29/17 11:23 - Other Additional findings: General: calm Heart: Sinus tachycardia Lungs: Diffuse exp wheezing Abdomen: Soft nontender, nondistended positive bowel sounds Skin: warm and dry, absent rash Extremities: Absent pedal edema, Neuro: Alert and oriented x3 Vascular: Pedal and radial pulses 2 out of 4 Internal Medicine: Result - Labs CBC & Chem 7: 09/29/17 04:09 09/29/17 04:09 Labs: Short CBC 09/29/17 Range/Units 04:09 WBC 6.0 (4.3-11.1) K/mcL Hgb 12.5 (11.5-15.4) g/dL Hct 39.7 (35.3-44.9) % Plt Count 208 (140-400) K/mcL Neutrophils # 4.5 (1.6-8.9) K/mcL BMP 09/29/17 04:09 Sodium 141 Potassium 4.8 Chloride 104 Carbon Dioxide 27 BUN 44 H Creatinine 0.70 Glucose 119 H Calcium 8.5 L - ABG Interpretation ABG results: ABG ABG pH 7.30 pH Units (7.32-7.45) L 09/29/17 04:30 ABG pCO2 64 mmHg (35-45) H 09/29/17 04:30 ABG pO2 96 mmHg (85-104) 09/29/17 04:30 ABG O2 Saturation 96 % (95-98) 09/29/17 04:30 - Impressions Impressions Chest CTA 09/29/17 11:00 IMPRESSION: 1. No pulmonary embolism. No acute abnormality in the chest. 2. Moderate to severe emphysema. D/ / 09/29/2017 12:35:41 Vicente Zhou MD / [facility] Interpreting Provider: Vicente Zhou MD Consult Discharge Plan - Plan Referrals: Jarett Romero MD [Primary Care Provider] - 10/09/17 1:30 pm <Callum Arceo - Last Filed: 09/29/17 17:55> Date of Encounter: 09/29/17 - Assessment and plan (1) Acute and chronic respiratory failure Current Visit: Yes Status: Acute Qualifiers: Respiratory failure complication: hypoxia and hypercapnia Qualified Code(s) : J96.21 - Acute and chronic respiratory failure with hypoxia; J96.22 - Acute and chronic respiratory failure with hypercapnia (2) Acute exacerbation of chronic obstructive airways disease Current Visit: Yes Status: Acute (3) Elevated brain natriuretic peptide (BNP) level Current Visit: Yes Status: Acute (4) Tachycardia Current Visit: Yes Status: Acute (5) DVT prophylaxis Current Visit: Yes Status: Acute (6) Tobacco abuse Current Visit: Yes Status: Acute (7) Parainfluenza infection Current Visit: Yes Status: Acute - Time Spent With Patient Total time spent is greater than 50% in coordination of care (as documented) at patient's floor/unit and/or counseling patient: - Constitutional Vitals: Temp Pulse Resp BP Pulse Ox 97.7 F 87 18 115/68 99 09/29/17 14:44 09/29/17 14:44 09/29/17 15:32 09/29/17 14:44 09/29/17 15:32 Internal Medicine: Result - Labs CBC & Chem 7: 09/29/17 04:09 09/29/17 04:09 Labs: Short CBC 09/29/17 Range/Units 04:09 WBC 6.0 (4.3-11.1) K/mcL Hgb 12.5 (11.5-15.4) g/dL Hct 39.7 (35.3-44.9) % Plt Count 208 (140-400) K/mcL Neutrophils # 4.5 (1.6-8.9) K/mcL BMP 09/29/17 04:09 Sodium 141 Potassium 4.8 Chloride 104 Carbon Dioxide 27 BUN 44 H Creatinine 0.70 Glucose 119 H Calcium 8.5 L - ABG Interpretation ABG results: ABG ABG pH 7.30 pH Units (7.32-7.45) L 09/29/17 04:30 ABG pCO2 64 mmHg (35-45) H 09/29/17 04:30 ABG pO2 96 mmHg (85-104) 09/29/17 04:30 ABG O2 Saturation 96 % (95-98) 09/29/17 04:30 - Impressions Impressions Chest CTA 09/29/17 11:00 IMPRESSION: 1. No pulmonary embolism. No acute abnormality in the chest. 2. Moderate to severe emphysema. D/ / 09/29/2017 12:35:41 Vicente Zhou MD / [facility] Interpreting Provider: Vicente Zhou MD - Attending Attestation I examined this patient and my medical decision-making was reviewed with the Resident Physician on 09/29/17. I agree with the documented findings, disposition and treatment plan as described except to the extent set forth below. Ms uFnez is currently admitted for resp failure and COPD exac due to viral illness. She remains moderate to high risk due to potential for worsening clinical status. Ms Funez is feeling somewhat better. No fever or chills. Breathing better today - does not need bipap as much. Still with cough and wheeze. Exam Alert More comfortable today Mucus membranes dry Heart not tachy now Continued diffuse wheeze Abd soft I/P 1. Resp failure 2. COPD Further diagnoses and plan as above.
[2017-09-29] MEDS: Levalbuterol Neb 1.25 MG/3 ML IH SCH ×2 (15:32→21:33)
[2017-09-29] MEDS: Gabapentin 300 MG CAPSULE PO SCH (20:25)
[2017-09-30] MEDS: MethylPREDNISolone 40 MG/ML VIAL IVP SCH ×2 (00:10→10:11)
[2017-09-30] MEDS: Levalbuterol Neb 1.25 MG/3 ML IH SCH ×4 (04:18→22:21)
[2017-09-30 04:20] LABS: Hemoglobin 12.4 g/dL (11.5-15.4); Immature Granulocytes % 0.4 % (0-4); Lymphocytes # 0.8 K/mcL (0.6-4.6); Lymphocytes % 14.6 %; Mean Corpuscular HGB Conc 32.6 g/dL (31.6-35.5); Mean Corpuscular Hemoglobin 32.5 pg (28.0-33.3); Mean Corpuscular Volume 99.7 fL (83.0-100.0); Mean Platelet Volume 11.1 fL (9.4-12.4); Monocytes # 0.4 K/mcL (0.0-1.3); Monocytes % 6.9 %; Neutrophils # 4.5 K/mcL (1.6-8.9); Platelet Count 210 K/mcL (140-400); Red Blood Count 3.81 M/mcL (3.82-4.97); Red Cell Distribution Width 12.7 % (11.5-14.5); Segmented Neutrophils % 78.1 %
[2017-09-30 04:37] LABS: BUN/Creatinine Ratio 64 (6-26); Blood Urea Nitrogen 42 mg/dL (8-23); Calcium 8.7 mg/dL (8.6-10.3); Carbon Dioxide 29 mEq/L (23-29); Chloride 103 mEq/L (98-107); Glucose 146 mg/dL (70-105); Osmolality,Calculated 303 (280-300); Sodium 140 mEq/L (136-145); eGFR For African Americans > 60 (> 60); eGFR For Non-African Americans > 60 (> 60)
[2017-09-30 05:26] LABS: Platelet Estimate Normal (Normal)
[2017-09-30] MEDS: *HR* Heparin 5,000 UNIT/ML VIAL SQ SCH ×2 (05:35→16:33)
[2017-09-30] MEDS ORDERED: levoFLOXacin 750 MG TABLET PO SCH (09:00)
[2017-09-30] MEDS: Budesonide/Formoterol 160/4.5 MDI IH SCH ×2 (09:09→22:21)
[2017-09-30] MEDS: Nicotine 7 MG PATCH.TD24 TD SCH (10:00)
--- NOTE | 2017-09-30 10:04 | Internal Med Progress Note ---
Date of Encounter: 09/30/17 Time of Encounter: 09:40 - Assessment and plan (1) Acute and chronic respiratory failure Current Visit: Yes Status: Acute Assessment and plan: Continues to slowly improve. Weaning oxygen as able. Continue supportive care for now. Qualifiers: Respiratory failure complication: hypoxia and hypercapnia Qualified Code(s) : J96.21 - Acute and chronic respiratory failure with hypoxia; J96.22 - Acute and chronic respiratory failure with hypercapnia (2) Acute exacerbation of chronic obstructive airways disease Current Visit: Yes Status: Acute Assessment and plan: Slowly improving. Will wean steroids down more. Increase activity - ? if patient needs SNF or home care at discharge (3) Parainfluenza infection Current Visit: Yes Status: Acute Assessment and plan: Acute parainfluenza infection. Continue supportive care for now. (4) Tachycardia Current Visit: Yes Status: Acute Assessment and plan: Resolved. Changed to Xopenex yesterday. Continue tele monitoring. (5) DVT prophylaxis Current Visit: Yes Status: Acute Assessment and plan: Subcutaneous heparin (6) Tobacco abuse Current Visit: Yes Status: Acute Assessment and plan: - Patient reports smoking 1 pack per day Patient was educated on smoking cessation - Time Spent With Patient Total time spent is greater than 50% in coordination of care (as documented) at patient's floor/unit and/or counseling patient: - Subjective Interval history: Ms Funez is currently admitted for acute exac COPD and resp failure due to acute parainfluenza infection. She remains moderate to high risk due to potential for worsening clinical status. Ms Funez is continuing to slowly improve. She says he has not been up much. Feels her breathing is still difficult but says she is beginning to approach baseline for her. No fever or chills. No GI issues. - Constitutional Vitals: Temp Pulse Resp BP Pulse Ox 97.8 F 86 16 115/74 99 09/30/17 06:55 09/30/17 06:55 09/30/17 09:13 09/30/17 06:55 09/30/17 09:13 General appearance: Present: A&O X 3, pleasant, answers questions appropriately - Head Head exam: Present: normocephalic - Eye Eye exam: Present: conjuntiva pink - ENT ENT exam: Present: mucous membranes dry - Respiratory Respiratory exam: Present: prolonged expiratory phase, wheezes. Absent: rales, rhonchi Additional comments: Continued end exp wheeze L greater than R. Better air movement overall. - Cardiovascular Cardiovascular exam: Present: RRR. Absent: tachycardia - GI/Abdominal GI/Abdominal exam: Present: normal bowel sounds, soft. Absent: tenderness - Extremities Exam Extremities exam: Present: warm. Absent: tenderness - Neurological Exam Neurological exam: Present: alert, oriented X3, no focal deficits - Skin Skin exam: Present: dry, warm Internal Medicine: Result - Labs CBC & Chem 7: 09/30/17 03:31 09/30/17 03:31 Labs: Short CBC 09/30/17 Range/Units 03:31 WBC 5.7 (4.3-11.1) K/mcL Hgb 12.4 (11.5-15.4) g/dL Hct 38.0 (35.3-44.9) % Plt Count 210 (140-400) K/mcL Neutrophils # 4.5 (1.6-8.9) K/mcL BMP 09/30/17 03:31 Sodium 140 Potassium 4.0 Chloride 103 Carbon Dioxide 29 BUN 42 H Creatinine 0.66 Glucose 146 H Calcium 8.7 - ABG Interpretation ABG results: ABG ABG pH 7.30 pH Units (7.32-7.45) L 09/29/17 04:30 ABG pCO2 64 mmHg (35-45) H 09/29/17 04:30 ABG pO2 96 mmHg (85-104) 09/29/17 04:30 ABG O2 Saturation 96 % (95-98) 09/29/17 04:30 - Impressions Impressions Chest CTA 09/29/17 11:00 IMPRESSION: 1. No pulmonary embolism. No acute abnormality in the chest. 2. Moderate to severe emphysema. D/ / 09/29/2017 12:35:41 Vicente Zhou MD / [email or web address] Interpreting Provider: Vicente Zhou MD Consult Discharge Plan - Plan Referrals: Jarett Romero MD [Primary Care Provider] - 10/09/17 1:30 pm
[2017-09-30] MEDS: hydroCHLOROthiazide 25 MG TABLET PO SCH (10:12)
[2017-09-30] MEDS: (Cyclosporine [Restasis] 1 DROP) OP SCH ×2 (10:12→22:06)
[2017-09-30] MEDS: ALPRAZolam 0.5 MG TABLET PO SCH ×2 (10:12→22:04)
[2017-09-30] MEDS: Fluticasone Propionate Nasal 50 MCG/SPRAY BOTTLE NS SCH ×2 (10:21→22:04)
[2017-09-30] MEDS ORDERED: methylPREDNISolone 125 MG/2 ML VIAL IVP SCH (11:30)
[2017-09-30] MEDS: Gabapentin 300 MG CAPSULE PO SCH (22:04)
[2017-09-30] MEDS: methylPREDNISolone 125 MG/2 ML VIAL IVP SCH (22:05)
[2017-10-01] MEDS: Levalbuterol Neb 1.25 MG/3 ML IH SCH ×4 (03:50→21:22)
[2017-10-01] MEDS: *HR* Heparin 5,000 UNIT/ML VIAL SQ SCH ×2 (04:56→18:11)
[2017-10-01] MEDS: ALPRAZolam 0.5 MG TABLET PO SCH ×2 (09:06→22:03)
[2017-10-01] MEDS: hydroCHLOROthiazide 25 MG TABLET PO SCH (09:06)
[2017-10-01] MEDS: Nicotine 7 MG PATCH.TD24 TD SCH (09:07)
[2017-10-01] MEDS: (Cyclosporine [Restasis] 1 DROP) OP SCH ×2 (09:08→22:03)
[2017-10-01] MEDS: methylPREDNISolone 125 MG/2 ML VIAL IVP SCH (09:08)
[2017-10-01] MEDS: Fluticasone Propionate Nasal 50 MCG/SPRAY BOTTLE NS SCH ×2 (09:08→22:03)
[2017-10-01 09:58] LABS: Basophils % 0.1 %; Hematocrit 37.7 % (35.3-44.9); Hemoglobin 12.6 g/dL (11.5-15.4); Immature Granulocytes % 0.3 % (0-4); Lymphocytes # 0.8 K/mcL (0.6-4.6); Lymphocytes % 9.7 %; Mean Corpuscular HGB Conc 33.4 g/dL (31.6-35.5); Mean Corpuscular Hemoglobin 32.6 pg (28.0-33.3); Mean Corpuscular Volume 97.4 fL (83.0-100.0); Monocytes # 0.8 K/mcL (0.0-1.3); Monocytes % 9.9 %; Neutrophils # 6.3 K/mcL (1.6-8.9); Platelet Count 201 K/mcL (140-400); Red Blood Count 3.87 M/mcL (3.82-4.97); Red Cell Distribution Width 12.5 % (11.5-14.5)
[2017-10-01] MEDS: Budesonide/Formoterol 160/4.5 MDI IH SCH ×2 (10:14→21:23)
[2017-10-01 10:20] LABS: BUN/Creatinine Ratio 52 (6-26); Blood Urea Nitrogen 34 mg/dL (8-23); Calcium 8.6 mg/dL (8.6-10.3); Carbon Dioxide 32 mEq/L (23-29); Chloride 101 mEq/L (98-107); Glucose 192 mg/dL (70-105); Osmolality,Calculated 301 (280-300); Potassium 3.5 mEq/L (3.5-5.1); Sodium 139 mEq/L (136-145); eGFR For African Americans > 60 (> 60); eGFR For Non-African Americans > 60 (> 60)
--- NOTE | 2017-10-01 10:44 | Internal Med Progress Note ---
Date of Encounter: 10/01/17 Time of Encounter: 10:30 - Assessment and plan (1) Acute and chronic respiratory failure Current Visit: Yes Status: Acute Assessment and plan: Most likely will need oxygen continuously at discharge. Will get 6 min walk test. Continue wean oxygen as able. Qualifiers: Respiratory failure complication: hypoxia and hypercapnia Qualified Code(s) : J96.21 - Acute and chronic respiratory failure with hypoxia; J96.22 - Acute and chronic respiratory failure with hypercapnia (2) Acute exacerbation of chronic obstructive airways disease Current Visit: Yes Status: Acute Assessment and plan: Slowly improving. Will wean steroids down Continue aerosols and supportive care. (3) Parainfluenza infection Current Visit: Yes Status: Acute Assessment and plan: Acute parainfluenza infection. Continue supportive care for now. (4) Tachycardia Current Visit: Yes Status: Resolved Assessment and plan: Resolved. Changed to Xopenex Continue tele monitoring. (5) DVT prophylaxis Current Visit: Yes Status: Acute Assessment and plan: Subcutaneous heparin (6) Tobacco abuse Current Visit: Yes Status: Acute Assessment and plan: - Patient reports smoking 1 pack per day Patient was educated on smoking cessation - Time Spent With Patient Total time spent is greater than 50% in coordination of care (as documented) at patient's floor/unit and/or counseling patient: - Subjective Interval history: Ms Funez is currently admitted for acute exac COPD and resp failure due to acute parainfluenza infection. She remains moderate to high risk due to potential for worsening clinical status. Ms Funez is still dyspneic but overall says she is improving. She is very dyspneic with movement. No fever or chills. Less cough and congestion. No GI issues. - Constitutional Vitals: Temp Pulse Resp BP Pulse Ox 97.5 F L 76 16 138/95 99 10/01/17 07:04 10/01/17 07:04 10/01/17 04:00 10/01/17 07:04 10/01/17 07:04 General appearance: Present: A&O X 3, pleasant, answers questions appropriately - Head Head exam: Present: normocephalic - Eye Eye exam: Present: EOMI, conjuntiva pink - ENT ENT exam: Present: mucous membranes moist - Respiratory Respiratory exam: Present: decreased breath sounds, rhonchi, wheezes - Cardiovascular Cardiovascular exam: Present: RRR. Absent: tachycardia - GI/Abdominal GI/Abdominal exam: Present: soft. Absent: tenderness - Extremities Exam Extremities exam: Present: warm. Absent: tenderness - Neurological Exam Neurological exam: Present: alert, oriented X3 - Skin Skin exam: Present: dry, warm Internal Medicine: Result - Labs CBC & Chem 7: 10/01/17 09:34 10/01/17 09:34 Labs: Short CBC 10/01/17 Range/Units 09:34 WBC 7.9 (4.3-11.1) K/mcL Hgb 12.6 (11.5-15.4) g/dL Hct 37.7 (35.3-44.9) % Plt Count 201 (140-400) K/mcL Neutrophils # 6.3 (1.6-8.9) K/mcL BMP 10/01/17 09:34 Sodium 139 Potassium 3.5 Chloride 101 Carbon Dioxide 32 H BUN 34 H Creatinine 0.66 Glucose 192 H Calcium 8.6 - ABG Interpretation ABG results: ABG ABG pH 7.30 pH Units (7.32-7.45) L 09/29/17 04:30 ABG pCO2 64 mmHg (35-45) H 09/29/17 04:30 ABG pO2 96 mmHg (85-104) 09/29/17 04:30 ABG O2 Saturation 96 % (95-98) 09/29/17 04:30 Consult Discharge Plan - Plan Referrals: Jarett Romero MD [Primary Care Provider] - 10/09/17 1:30 pm
[2017-10-01] MEDS: MethylPREDNISolone 40 MG/ML VIAL IVP SCH (18:11)
--- NOTE | 2017-10-01 21:46 | Electrocardiograph Report ---
[address] [place] [address] Test Date: 2017-09-29 Pat Name: Sneha Funez Department: 111 Room: 2N2 Gender: F Network Systems Engineer: : [id number] Requested By: Callum Arceo Order Number: [id number] Reading MD: David Sanchez Measurements Intervals Delta Rate: 67 P: 72 DE: 166 QRS: 103 QRSD: 89 T: 75 QT: 389 QTc: 405 Interpretive Statements SINUS RHYTHM WITH SINUS ARRHYTHMIA RIGHT AXIS DEVIATION Electronically Signed On 10-01-2017 21:45:20 EDT by David Sanchez
[2017-10-01] MEDS: Gabapentin 300 MG CAPSULE PO SCH (22:03)
[2017-10-02] MEDS: Levalbuterol Neb 1.25 MG/3 ML IH SCH ×3 (03:39→15:23)
[2017-10-02] MEDS: MethylPREDNISolone 40 MG/ML VIAL IVP SCH (05:01)
[2017-10-02] MEDS: *HR* Heparin 5,000 UNIT/ML VIAL SQ SCH (05:01)
[2017-10-02 05:15] LABS: Hematocrit 36.9 % (35.3-44.9); Hemoglobin 12.4 g/dL (11.5-15.4); Mean Corpuscular HGB Conc 33.6 g/dL (31.6-35.5); Mean Corpuscular Hemoglobin 32.3 pg (28.0-33.3); Mean Corpuscular Volume 96.1 fL (83.0-100.0); Mean Platelet Volume 11.4 fL (9.4-12.4); Platelet Count 199 K/mcL (140-400); Red Blood Count 3.84 M/mcL (3.82-4.97); Red Cell Distribution Width 12.2 % (11.5-14.5)
[2017-10-02 05:40] LABS: BUN/Creatinine Ratio 52 (6-26); Blood Urea Nitrogen 30 mg/dL (8-23); Calcium 8.5 mg/dL (8.6-10.3); Carbon Dioxide 33 mEq/L (23-29); Chloride 99 mEq/L (98-107); Glucose 138 mg/dL (70-105); Osmolality,Calculated 298 (280-300); Potassium 3.4 mEq/L (3.5-5.1); Sodium 140 mEq/L (136-145); eGFR For African Americans > 60 (> 60); eGFR For Non-African Americans > 60 (> 60)
[2017-10-02] MEDS: (Cyclosporine [Restasis] 1 DROP) OP SCH (09:58)
[2017-10-02] MEDS: hydroCHLOROthiazide 25 MG TABLET PO SCH (09:58)
[2017-10-02] MEDS: Nicotine 7 MG PATCH.TD24 TD SCH (09:58)
[2017-10-02] MEDS: Fluticasone Propionate Nasal 50 MCG/SPRAY BOTTLE NS SCH (09:58)
[2017-10-02] MEDS: ALPRAZolam 0.5 MG TABLET PO SCH (09:59)
--- NOTE | 2017-10-02 10:42 | Discharge Summary ---
- NOTES TO OUTPATIENT PROVIDER Notes to Outpatient Provider: Pt admitted with acute exac COPD precipitated by parainfluenza infection. She has been treated with aerosols and steroids. She has progressed to baseline breathing. Orders not resulted at time of discharge: Pending orders 09/27/17 04:00 Culture,Sputum with Gram Stain [] AM 0400 Date of Encounter: 10/02/17 Time of Encounter: 10:30 - Discharge Diagnosis (1) Acute and chronic respiratory failure Priority: Primary Status: Acute Assessment and Plan: Arranging oxygen. Qualifiers: Respiratory failure complication: hypoxia and hypercapnia Qualified Code(s) : J96.21 - Acute and chronic respiratory failure with hypoxia; J96.22 - Acute and chronic respiratory failure with hypercapnia (2) Acute exacerbation of chronic obstructive airways disease Priority: Secondary Status: Resolved Assessment and Plan: Improving. (3) Parainfluenza infection Priority: Secondary Status: Resolved Assessment and Plan: Acute parainfluenza infection. Continue supportive care for now. (4) Tachycardia Priority: Secondary Status: Resolved (5) Tobacco abuse Priority: Secondary Status: Chronic Hospital course: Ms. Fnuez is a 72 year old female with hx of COPD presented to ED with complaints of worsening dyspnea. She was evaluated and subsequently admitted. Ms Funez was admitted to [facility]. She was started on steroids, aerosols and RIP found parainfluenza. She had significant dyspnea early and required bipap for a period of time. She slowly improved and was able to be tapered on her oxygen and steroids. Today she feels at baseline breathing but feels tired and weak. She was seen by PT/OT and does not need services. We have evaluated for continuous oxygen. She is currently afebrile and ready for discharge home. Discharge discussed with: patient Time spent discussing smoking cessation with patient: 3 to 10 minutes - Time Spent with Patient Total time spent providing and/or coordinating discharge services: 41min - Discharge Medications Prescriptions: Nicotine Patch [Nicoderm] 7 mg TD DAILY #30 patch.td24 predniSONE [PredniSONE] 40 mg PO DAILY #10 tablet Home Medications: Albuterol Neb [Proventil Neb] 2.5 mg IH Q4H PRN 03/30/16 [History] Albuterol Sulfate [Proair Hfa] 2 puff IH Q4H PRN 03/30/16 [History] Atenolol [Tenormin] 50 mg PO DAILY 03/30/16 [History] Budesonide/Formoterol 160/4.5 [Symbicort 160/4.5] 1 puff IH BIDR 03/30/16 [ History] Cyclosporine [Restasis] 1 drop BOTH EYES BID 03/30/16 [History] Fluticasone Propionate Nasal [Flonase] 1 spray NS BID 03/30/16 [History] Gabapentin [Neurontin] 600 mg PO HS 03/30/16 [History] Levothyroxine [Synthroid] 88 mcg PO 0630 03/30/16 [History] Montelukast [Singulair] 10 mg PO DAILY 03/30/16 [History] Naproxen [Naprosyn] 500 mg PO BID PRN 03/30/16 [History] Pantoprazole Sodium [Protonix] 40 mg PO BID 03/30/16 [History] Tizanidine HCl 4 mg PO HS PRN 03/30/16 [History] hydroCHLOROthiazide [Hydrochlorothiazide] 25 mg PO DAILY 03/30/16 [History] ALPRAZolam [Xanax 0.5 MG Tablet] 0.5 mg PO BID 09/26/17 [History] Ipratropium/Albuterol Sulfate [Combivent Respimat Inhal [place]] 2 puff IH BID [History] Meclizine HCl [Verticalm] 25 mg PO TID PRN 09/26/17 [History] Nicotine Patch [Nicoderm] 7 mg TD DAILY #30 patch.td24 10/02/17 [Rx] predniSONE [PredniSONE] 40 mg PO DAILY #10 tablet 10/02/17 [Rx] Allergies/Adverse Reactions: 3 Allergy/AdvReac Type Severity Reaction Status Date / Time No Known Allergies Allergy Verified 03/30/16 11:38 Date of admission: 09/26/17 23:04 Primary care physician: Jarett Romero MD Consults: 09/26/17 23:09 Consult to Nurse Navigator [CONS] Routine Comment: Discharging clinician: Callum Arceo Anticipated date of discharge: 10/02/17 - Constitutional Vitals: Temp Pulse Resp BP Pulse Ox 98 F 69 16 136/71 98 10/02/17 07:44 10/02/17 07:44 10/02/17 07:44 10/02/17 07:44 10/02/17 07:44 General appearance: Present: A&O X 3, pleasant, answers questions appropriately - Head Head exam: Present: normocephalic - Eye Eye exam: Present: conjuntiva pink - ENT ENT exam: Present: mucous membranes dry - Respiratory Respiratory exam: Present: decreased breath sounds, rhonchi, wheezes. Absent: respiratory distress - Cardiovascular Cardiovascular exam: Present: RRR. Absent: systolic murmur, tachycardia - GI/Abdominal GI/Abdominal exam: Present: soft. Absent: tenderness - Extremities Exam Extremities exam: Present: warm. Absent: tenderness - Neurological Exam Neurological exam: Present: alert, oriented X3 - Skin Skin exam: Present: dry, warm - Patient Status Disposition: Home, Self-Care Condition: Fair Functional capacity at discharge: independent ambulation Overall status at discharge: patient is progressing back to baseline - Discharge Instructions Follow Up With: Jarett Romero MD [Primary Care Provider] - 10/09/17 1:30 pm - Diet and Activity Activity: increase activity as tolerated Diet: advance to your usual diet
[2017-10-02] MEDS: Budesonide/Formoterol 160/4.5 MDI IH SCH (10:47)
[2017-10-02 11:09] VITALS: BP 135/98
[2017-10-02] MEDS ORDERED: Potassium Chloride Elixir 20 MEQ/15 ML UDC PO ONE (15:15)
== END 2017-10-02 15:29 | disposition home or self-care (01) | DRG 190 ==
LOC: 2NNU 19:35 → EMEROO 19:35 → 2NNU 22:45 → SUATTDRO 23:04 → 2NENU 09-27 05:18
PROVIDERS: ADMIT Internal Medicine Hematology & Oncology; ATTEND Internal Medicine

== ENCOUNTER 2019-04-28 08:33 | Inpatient (IN) ==
[2019-04-28] MEDS ORDERED: Ipratropium/Albuterol Neb 3 ML IH ONE (08:42)
[2019-04-28] MEDS ORDERED: Azithromycin 500 MG in 0.9 % Sodium Chloride 250 ML IVPB ONE (08:49)
[2019-04-28] MEDS ORDERED: cefTRIAXone 1,000 MG in Water for inj. (sterile) 10 ML IVP ONE (08:49)
[2019-04-28 09:07] LABS: ABG Base Excess 10 mEq/L (-2 to 3); ABG HCO3 39 mEq/L (21-27); ABG Oxygen Saturation 98 % (95-98); ABG PCO2 70 mmHg (35-45); ABG PH 7.35 pH Units (7.32-7.45); ABG PO2 112 mmHg (85-104); ABG TCO2 41 mEq/L (20-26)
[2019-04-28 09:57] LABS: Bilirubin,Urine Negative (Negative); Blood,Urine Negative (Negative); Clarity,Urine Clear (Clear); Color,Urine Yellow (Yellow); Glucose,Urine (UA) Normal (Normal); Ketones,Urine Negative (Negative); Leukocyte Esterase,Urine Negative (Negative); Nitrite,Urine Negative (Negative); PH,Urine 6.5 pH Units (5.0-8.0); Protein,Urine Negative (Neg-Trace); Specific Gravity,Urine 1.015 (1.010-1.025); Urobilinogen,Urine Normal (Normal)
[2019-04-28 10:07] LABS: Basophils % 0.1 %; Hematocrit 41.7 % (35.3-44.9); Hemoglobin 13.6 g/dL (11.5-15.4); Immature Granulocytes % 0.6 % (0-4); Lymphocytes % 12.5 %; Mean Corpuscular HGB Conc 32.6 g/dL (31.6-35.5); Mean Corpuscular Hemoglobin 32.8 pg (28.0-33.3); Mean Corpuscular Volume 100.5 fL (83.0-100.0); Mean Platelet Volume 10.4 fL (9.4-12.4); Monocytes # 0.7 K/mcL (0.0-1.3); Monocytes % 8.3 %; Neutrophils # 6.5 K/mcL (1.6-8.9); Platelet Count 276 K/mcL (140-400); Red Blood Count 4.15 M/mcL (3.82-4.97); Red Cell Distribution Width 13.5 % (11.5-14.5); Segmented Neutrophils % 78.5 %; White Blood Count 8.3 K/mcL (4.3-11.1)
[2019-04-28 10:25] LABS: BUN/Creatinine Ratio 23 (6-26); Blood Urea Nitrogen 15 mg/dL (8-23); Calcium 8.7 mg/dL (8.6-10.3); Carbon Dioxide 34 mEq/L (23-29); Chloride 98 mEq/L (98-107); Glucose 89 mg/dL (70-105); Magnesium 1.3 mg/dL (1.6-2.6); Osmolality,Calculated 292 (280-300); Potassium 3.2 mEq/L (3.5-5.1); Sodium 141 mEq/L (136-145); eGFR For African Americans > 60 (> 60); eGFR For Non-African Americans > 60 (> 60)
[2019-04-28 10:28] LABS: Troponin I 0.44 ng/mL (< 0.04)
[2019-04-28] MEDS ORDERED: Potassium Chloride 40 MEQ, Lidocaine 1% 2 ML in 0.9 % Sodium Chloride 500 ML IVPB ONE (10:28)
[2019-04-28] MEDS ORDERED: *HR* Heparin 5,000 UNIT/ML VIAL IVP PRN ×2 (10:37)
[2019-04-28] MEDS ORDERED: *HR* Heparin 5,000 UNIT/ML VIAL IVP ONE (10:37)
[2019-04-28 10:47] LABS: Heparin anti-factor XA UFH 0.02 IU/mL (0.30-0.70)
[2019-04-28] MEDS: Heparin 25,000 UNIT/250 ML D5W 25,000 UNIT/250 ML IV.SOLN IVC SCH (11:15)
[2019-04-28] MEDS ORDERED: Ipratropium/Albuterol Neb 3 ML IH PRN (11:47)
[2019-04-28] MEDS ORDERED: MethylPREDNISolone 40 MG/ML VIAL IVP SCH (12:00)
[2019-04-28] MEDS ORDERED: Nitroglycerin 0.4 MG TAB.SUBL SL PRN (12:43)
[2019-04-28 13:13] LABS: ABG Base Excess 8 mEq/L (-2 to 3); ABG HCO3 36 mEq/L (21-27); ABG Oxygen Saturation 98 % (95-98); ABG PCO2 65 mmHg (35-45); ABG PH 7.35 pH Units (7.32-7.45); ABG PO2 111 mmHg (85-104); ABG TCO2 38 mEq/L (20-26)
[2019-04-28] MEDS ORDERED: Aspirin 81 MG TAB.CHEW PO STA (13:35)
[2019-04-28 15:08] LABS: Adenovirus Not Detected (Not Detect); Bordetella Pertussis Not Detected (Not Detect); Chlamydophila pneumoniae Not Detected (Not Detect); Coronavirus 229E Not Detected (Not Detect); Coronavirus HKU1 DETECTED (Not Detect); Coronavirus NL63 Not Detected (Not Detect); Coronavirus OC43 Not Detected (Not Detect); Human Metapneumovirus Not Detected (Not Detect); Human Rhinovirus/Enterovirus Not Detected (Not Detect); Influenza A Subtype 2009 H1 Not Detected (Not Detect); Influenza A Untypeable Not Detected (Not Detect); Influenza B Not Detected (Not Detect); Mycoplasma pneumoniae Not Detected (Not Detect); Parainfluenza Virus 1 Not Detected (Not Detect); Parainfluenza Virus 2 Not Detected (Not Detect); Parainfluenza Virus 3 Not Detected (Not Detect); Parainfluenza Virus 4 Not Detected (Not Detect); Respiratory Syncytial Virus Not Detected (Not Detect)
[2019-04-28] MEDS: Ipratropium/Albuterol Neb 3 ML IH SCH ×2 (15:10→21:41)
[2019-04-28] MEDS ORDERED: ALPRAZolam 0.5 MG TABLET PO ONE (16:04)
[2019-04-28] MEDS: MethylPREDNISolone 40 MG/ML VIAL IVP SCH ×2 (18:08→23:44)
[2019-04-28] MEDS ORDERED: Ringers Solution, Lactated 500 ML IVC SCH (18:15)
[2019-04-28] MEDS: ALPRAZolam 0.5 MG TABLET PO PRN (18:21)
[2019-04-29 01:17] LABS: BUN/Creatinine Ratio 38 (6-26); Blood Urea Nitrogen 17 mg/dL (8-23); Calcium 7.8 mg/dL (8.6-10.3); Carbon Dioxide 33 mEq/L (23-29); Chloride 100 mEq/L (98-107); Glucose 126 mg/dL (70-105); Magnesium 1.7 mg/dL (1.6-2.6); Osmolality,Calculated 293 (280-300); Potassium 4.1 mEq/L (3.5-5.1); Sodium 140 mEq/L (136-145); eGFR For African Americans > 60 (> 60); eGFR For Non-African Americans > 60 (> 60)
[2019-04-29] MEDS: Ipratropium/Albuterol Neb 3 ML IH SCH ×4 (03:20→21:41)
[2019-04-29 07:29] LABS: Hematocrit 38.1 % (35.3-44.9); Hemoglobin 12.8 g/dL (11.5-15.4); Mean Corpuscular HGB Conc 33.6 g/dL (31.6-35.5); Mean Corpuscular Hemoglobin 33.4 pg (28.0-33.3); Mean Corpuscular Volume 99.5 fL (83.0-100.0); Mean Platelet Volume 10.8 fL (9.4-12.4); Platelet Count 252 K/mcL (140-400); Red Blood Count 3.83 M/mcL (3.82-4.97); Red Cell Distribution Width 13.4 % (11.5-14.5); White Blood Count 4.6 K/mcL (4.3-11.1)
[2019-04-29] MEDS: MethylPREDNISolone 40 MG/ML VIAL IVP SCH ×2 (09:07→17:32)
[2019-04-29] MEDS ORDERED: Perflutren Lipid Microsphere 1.3 ML in 0.9 % Sodium Chloride 8.7 ML IVP ONE (16:46)
[2019-04-29] MEDS: Heparin 25,000 UNIT/250 ML D5W 25,000 UNIT/250 ML IV.SOLN IVC SCH (20:40)
[2019-04-29] MEDS: ALPRAZolam 0.5 MG TABLET PO PRN (20:41)
[2019-04-30] MEDS: MethylPREDNISolone 40 MG/ML VIAL IVP SCH ×3 (00:44→18:50)
[2019-04-30 03:52] LABS: VBG HCO3 35 mEq/L (21-27); VBG PCO2 68 mmHg (41-51); VBG PH 7.32 pH Units (7.32-7.42); VBG PO2 169 mmHg (25-50)
[2019-04-30 04:11] LABS: BUN/Creatinine Ratio 57 (6-26); Blood Urea Nitrogen 25 mg/dL (8-23); Calcium 7.9 mg/dL (8.6-10.3); Carbon Dioxide 34 mEq/L (23-29); Chloride 101 mEq/L (98-107); Glucose 141 mg/dL (70-105); Osmolality,Calculated 295 (280-300); Potassium 4.2 mEq/L (3.5-5.1); Sodium 139 mEq/L (136-145); eGFR For African Americans > 60 (> 60); eGFR For Non-African Americans > 60 (> 60)
[2019-04-30 04:15] LABS: Hematocrit 37.8 % (35.3-44.9); Hemoglobin 12.7 g/dL (11.5-15.4); Immature Platelets 6.8 % (1.1-6.1); Mean Corpuscular HGB Conc 33.6 g/dL (31.6-35.5); Mean Corpuscular Hemoglobin 33.1 pg (28.0-33.3); Mean Corpuscular Volume 98.4 fL (83.0-100.0); Mean Platelet Volume 10.9 fL (9.4-12.4); Red Blood Count 3.84 M/mcL (3.82-4.97); Red Cell Distribution Width 13.4 % (11.5-14.5); White Blood Count 5.8 K/mcL (4.3-11.1)
[2019-04-30] MEDS: Ipratropium/Albuterol Neb 3 ML IH SCH ×4 (04:19→21:53)
[2019-04-30] MEDS: Aspirin Enteric Coated 81 MG Tablet PO SCH (10:01)
[2019-04-30] MEDS: Nicotine 14 MG PATCH.TD24 TD SCH (10:04)
[2019-04-30] MEDS ORDERED: Baclofen 10 MG TABLET PO PRN (10:47)
[2019-04-30] MEDS: Gabapentin 300 MG CAPSULE PO SCH (21:11)
[2019-04-30] MEDS: ALPRAZolam 0.5 MG TABLET PO PRN (21:12)
[2019-04-30] MEDS: Budesonide/Formoterol 160/4.5 1 PUFF INH IH SCH (21:52)
[2019-05-01 02:13] LABS: Hematocrit 36.6 % (35.3-44.9); Hemoglobin 11.4 g/dL (11.5-15.4); Mean Corpuscular HGB Conc 31.1 g/dL (31.6-35.5); Mean Corpuscular Hemoglobin 32.4 pg (28.0-33.3); Mean Platelet Volume 10.9 fL (9.4-12.4); Platelet Count 223 K/mcL (140-400); Red Blood Count 3.52 M/mcL (3.82-4.97); Red Cell Distribution Width 13.2 % (11.5-14.5); White Blood Count 7.1 K/mcL (4.3-11.1)
[2019-05-01 02:32] LABS: BUN/Creatinine Ratio 51 (6-26); Blood Urea Nitrogen 22 mg/dL (8-23); Calcium 8.3 mg/dL (8.6-10.3); Carbon Dioxide 37 mEq/L (23-29); Chloride 101 mEq/L (98-107); Glucose 99 mg/dL (70-105); Magnesium 1.8 mg/dL (1.6-2.6); Osmolality,Calculated 297 (280-300); Potassium 3.5 mEq/L (3.5-5.1); Sodium 142 mEq/L (136-145); eGFR For African Americans > 60 (> 60); eGFR For Non-African Americans > 60 (> 60)
[2019-05-01] MEDS: Ipratropium/Albuterol Neb 3 ML IH SCH ×4 (04:12→21:45)
[2019-05-01] MEDS: MethylPREDNISolone 40 MG/ML VIAL IVP SCH ×2 (04:59→17:47)
[2019-05-01] MEDS: Heparin 25,000 UNIT/250 ML D5W 25,000 UNIT/250 ML IV.SOLN IVC SCH (05:04)
[2019-05-01] MEDS: Nicotine 14 MG PATCH.TD24 TD SCH (07:27)
[2019-05-01] MEDS: ALPRAZolam 0.5 MG TABLET PO PRN ×2 (07:27→20:20)
[2019-05-01] MEDS: Aspirin Enteric Coated 81 MG Tablet PO SCH (07:27)
[2019-05-01] MEDS: Budesonide/Formoterol 160/4.5 1 PUFF INH IH SCH ×2 (09:46→21:45)
[2019-05-01] MEDS: Gabapentin 300 MG CAPSULE PO SCH (20:20)
[2019-05-02 01:34] LABS: Hematocrit 37.7 % (35.3-44.9); Hemoglobin 12.1 g/dL (11.5-15.4); Mean Corpuscular HGB Conc 32.1 g/dL (31.6-35.5); Mean Corpuscular Hemoglobin 32.6 pg (28.0-33.3); Mean Corpuscular Volume 101.6 fL (83.0-100.0); Mean Platelet Volume 11.2 fL (9.4-12.4); Platelet Count 204 K/mcL (140-400); Red Blood Count 3.71 M/mcL (3.82-4.97); Red Cell Distribution Width 12.9 % (11.5-14.5); White Blood Count 5.7 K/mcL (4.3-11.1)
[2019-05-02 01:55] LABS: BUN/Creatinine Ratio 46 (6-26); Blood Urea Nitrogen 22 mg/dL (8-23); Calcium 8.6 mg/dL (8.6-10.3); Carbon Dioxide 41 mEq/L (23-29); Chloride 97 mEq/L (98-107); Glucose 149 mg/dL (70-105); Osmolality,Calculated 298 (280-300); Potassium 4.3 mEq/L (3.5-5.1); Sodium 141 mEq/L (136-145); eGFR For African Americans > 60 (> 60); eGFR For Non-African Americans > 60 (> 60)
[2019-05-02] MEDS: Ipratropium/Albuterol Neb 3 ML IH SCH ×2 (03:28→10:23)
[2019-05-02] MEDS: MethylPREDNISolone 40 MG/ML VIAL IVP SCH (06:05)
[2019-05-02 07:53] VITALS: BP 121/70
[2019-05-02] MEDS: Nicotine 14 MG PATCH.TD24 TD SCH (09:27)
[2019-05-02] MEDS: Aspirin Enteric Coated 81 MG Tablet PO SCH (09:31)
[2019-05-02] MEDS: ALPRAZolam 0.5 MG TABLET PO PRN (09:38)
[2019-05-02] MEDS: Budesonide/Formoterol 160/4.5 1 PUFF INH IH SCH (10:23)
== END 2019-05-02 14:48 | disposition home or self-care (01) | DRG 280 ==
LOC: EMEROOARM 08:33 → 2NENU 08:33 → SUATTDRO 14:15
PROVIDERS: ADMIT Internal Medicine; ATTEND Internal Medicine

== ENCOUNTER 2019-06-09 08:48 | Inpatient (IN) ==
[2019-06-09 09:19] LABS: Basophils % 0.1 %; Hematocrit 29.3 % (35.3-44.9); Hemoglobin 9.9 g/dL (11.5-15.4); Immature Granulocytes % 0.6 % (0-4); Lymphocytes % 18.5 %; Mean Corpuscular HGB Conc 33.8 g/dL (31.6-35.5); Mean Corpuscular Hemoglobin 33.7 pg (28.0-33.3); Mean Corpuscular Volume 99.7 fL (83.0-100.0); Mean Platelet Volume 10.5 fL (9.4-12.4); Monocytes % 8.4 %; Platelet Count 281 K/mcL (140-400); Red Blood Count 2.94 M/mcL (3.82-4.97); Red Cell Distribution Width 14.8 % (11.5-14.5); Segmented Neutrophils % 72.4 %; White Blood Count 6.9 K/mcL (4.3-11.1)
[2019-06-09 09:20] LABS: Lymphocytes # 1.3 K/mcL (0.6-4.6); Monocytes # 0.6 K/mcL (0.0-1.3)
[2019-06-09 09:25] LABS: Prothrombin Time 11.2 Seconds (9.4-12.1)
[2019-06-09 09:38] LABS: BUN/Creatinine Ratio 38 (6-26); Blood Urea Nitrogen 23 mg/dL (8-23); Calcium 8.4 mg/dL (8.6-10.3); Carbon Dioxide 31 mEq/L (23-29); Chloride 107 mEq/L (98-107); Glucose 87 mg/dL (70-105); Osmolality,Calculated 301 (280-300); Potassium 3.4 mEq/L (3.5-5.1); Sodium 144 mEq/L (136-145); eGFR For African Americans > 60 (> 60); eGFR For Non-African Americans > 60 (> 60)
[2019-06-09] MEDS ORDERED: Albuterol 2.5 MG/3 ML NEBULIZER IH ONE (13:53)
[2019-06-09] MEDS ORDERED: Dexamethasone 4 MG/ML VIAL ONE ×2 (13:58→14:57)
[2019-06-09] MEDS ORDERED: Lidocaine -MPF 2% 2 ML VIAL ONE ×2 (13:58→14:18)
[2019-06-09] MEDS ORDERED: Ondansetron 4 MG/2 ML VIAL ONE ×2 (13:58→14:57)
[2019-06-09] MEDS ORDERED: *HR* Rocuronium Bromide 50 MG/5 ML VIAL ONE (13:58)
[2019-06-09] MEDS ORDERED: *HR* Midazolam HCl 2 MG/2 ML VIAL ONE (13:59)
[2019-06-09] MEDS ORDERED: *HR* Propofol 200 MG/20 ML VIAL IVP ONE ×2 (13:59→14:18)
[2019-06-09] MEDS ORDERED: *HR* FentaNYL (PF) 100 MCG/2 ML VIAL ONE ×2 (13:59→14:18)
[2019-06-09] MEDS ORDERED: ceFAZolin 2,000 MG in Water for inj. (sterile) 20 ML IVP ONE (14:03)
[2019-06-09] MEDS ORDERED: Heparin 1,000 UNITS/500 mL 500 ML ONE (14:05)
[2019-06-09] MEDS ORDERED: *HR* Vasopressin 20 UNIT/ML VIAL ONE (14:18)
[2019-06-09] MEDS ORDERED: *HR* PHENYLEPHRINE 1,000 MCG/10 ML SYRINGE IVP ONE (14:29)
[2019-06-09] MEDS ORDERED: EPHEDrine 50 MG/ML VIAL ONE (14:29)
[2019-06-09] MEDS ORDERED: Acetaminophen IV 1,000 MG/100 ML INFUS..BTL ONE (14:35)
[2019-06-09] MEDS ORDERED: Acetaminophen 325 MG TABLET PO PRN (15:28)
[2019-06-09] MEDS ORDERED: Naloxone 0.4 MG/ML INJ IVP PRN (15:28)
[2019-06-09] MEDS ORDERED: Ondansetron 4 MG/2 ML VIAL IVP PRN (15:28)
[2019-06-09] MEDS ORDERED: *HR* HYDROcodone/Acet 5/325 mg TABLET PO PRN (15:28)
[2019-06-09] MEDS ORDERED: *HR* Labetalol 20 MG/4 ML SYRINGE IVP PRN (15:30)
[2019-06-09] MEDS ORDERED: *HR* OxyCODONE Immed Rel 5 MG TABLET PO PRN (15:30)
[2019-06-09] MEDS ORDERED: Ondansetron 4 MG/2 ML VIAL IVP ONE (15:30)
[2019-06-09] MEDS ORDERED: *HR* Heparin 5,000 UNIT/ML VIAL IVP ONE (15:39)
[2019-06-09] MEDS ORDERED: *HR* Heparin 5,000 UNIT/ML VIAL IVP PRN ×2 (15:39)
[2019-06-09] MEDS ORDERED: Heparin 25,000 UNIT/250 ML D5W 25,000 UNIT/250 ML IV.SOLN IVC SCH (15:45)
[2019-06-09] MEDS: Ringers Solution, Lactated 1,000 ML IVC SCH ×2 (16:37→18:19)
[2019-06-09] MEDS ORDERED: Albuterol 2.5 MG/3 ML NEBULIZER IH PRN (16:42)
[2019-06-09] MEDS ORDERED: ALPRAZolam 0.5 MG TABLET PO PRN (16:42)
[2019-06-09] MEDS: Aspirin Enteric Coated 81 MG Tablet PO SCH (18:13)
[2019-06-09] MEDS: predniSONE 10 MG TABLET PO SCH (18:14)
[2019-06-09] MEDS: Potassium Chloride Elixir 20 MEQ/15 ML UDC PO SCH (19:46)
[2019-06-09] MEDS: Budesonide/Formoterol 160/4.5 1 PUFF INH IH SCH (20:12)
[2019-06-10] MEDS ORDERED: *HR* Metoprolol 5 MG/5 ML VIAL IVP ONE (01:57)
[2019-06-10 04:59] LABS: Basophils % 0.2 %; Hematocrit 26.3 % (35.3-44.9); Hemoglobin 8.4 g/dL (11.5-15.4); Immature Granulocytes % 0.7 % (0-4); Lymphocytes # 0.8 K/mcL (0.6-4.6); Lymphocytes % 8.4 %; Mean Corpuscular HGB Conc 31.9 g/dL (31.6-35.5); Mean Corpuscular Hemoglobin 33.6 pg (28.0-33.3); Mean Corpuscular Volume 105.2 fL (83.0-100.0); Mean Platelet Volume 10.9 fL (9.4-12.4); Monocytes # 0.7 K/mcL (0.0-1.3); Neutrophils # 8.2 K/mcL (1.6-8.9); Platelet Count 235 K/mcL (140-400); Red Cell Distribution Width 14.7 % (11.5-14.5); Segmented Neutrophils % 83.7 %; White Blood Count 9.8 K/mcL (4.3-11.1)
[2019-06-10 05:14] LABS: BUN/Creatinine Ratio 40 (6-26); Blood Urea Nitrogen 17 mg/dL (8-23); Carbon Dioxide 32 mEq/L (23-29); Chloride 103 mEq/L (98-107); Glucose 132 mg/dL (70-105); Osmolality,Calculated 295 (280-300); Potassium 3.6 mEq/L (3.5-5.1); Sodium 141 mEq/L (136-145); eGFR For African Americans > 60 (> 60); eGFR For Non-African Americans > 60 (> 60)
[2019-06-10] MEDS: Budesonide/Formoterol 160/4.5 1 PUFF INH IH SCH (07:41)
[2019-06-10] MEDS: predniSONE 10 MG TABLET PO SCH (07:57)
[2019-06-10] MEDS: Aspirin Enteric Coated 81 MG Tablet PO SCH (07:57)
[2019-06-10] MEDS: Potassium Chloride Elixir 20 MEQ/15 ML UDC PO SCH (07:58)
[2019-06-10 15:13] VITALS: BP 136/84
== END 2019-06-10 18:45 | disposition home or self-care (01) | DRG 907 ==
LOC: SUATTDRO → 2NNU 08:48 → EMEROOARM 08:48 → 2NNU 13:44 → SUATTDRO 13:58 → 2NNU 14:27
PROVIDERS: ADMIT Surgery; ATTEND Surgery